=== PATIENT | male | born 1935 | race Two or more races ===

== ENCOUNTER → 2019-01-10 19:02 | Outpatient (CLI) | payer MEDICARE | END | disposition home or self-care (01) | LOC: D.LABREF 19:02 | PROVIDERS: ATTEND Orthopaedic Surgery | DX: M17.12 Unilateral primary osteoarthritis, left knee (principal); Z11.8 Encounter for screening for other infectious and parasitic diseases ==

== ENCOUNTER 2019-01-11 13:45 | Inpatient (IN) | payer MEDICARE, OTHER ==
[~2019-01-11] VITALS: Ht 185.4 cm; Wt 120.5 kg
[2019-01-24] MEDS ORDERED: TENORMIN25 MG PO (13:38)
[2019-01-24] MEDS ORDERED: HCTZ25 MG PO (13:39)
[2019-01-24] MEDS ORDERED: VASOTEC20 MG PO (13:39)
[2019-01-24] MEDS ORDERED: FLOMAX0.4 MG PO (13:40)
[2019-01-24] MEDS ORDERED: ZOCOR20 MG PO (13:40)
[2019-01-25 09:58] LABS: BASOPHILS 0.2 % (0-2); EOSINOPHILS 1.8 % (0-7); HEMATOCRIT 44.4 % (42.0-54.0); HEMOGLOBIN 14.9 g/dL (13.5-17.5); IMMATURE GRANULOCYTES 0.6 % (0-5); LYMPHOCYTES 18.7 % (15-50); MCH 32.1 pg (26.0-34.0); MCHC 33.6 g/dL (31.0-37.0); MCV 95.7 fL (80.0-100.0); MEAN PLATELET VOLUME 10.5 fL (7.4-10.4); MONOCYTES 10.4 % (2-11); NEUTROPHILS 68.3 % (40-80); PLATELET COUNT 212 10x3/uL (130-400); RBC 4.64 10x6/uL (4.20-6.10); RDW 13.3 % (11.5-14.5)
[2019-01-25 10:02] LABS: APTT 28.1 SECONDS (22.8-39.4); INR 1.02 (0.85-1.17); PROTIME 12.9 SECONDS (11.6-15.0)
[2019-01-25 10:10] LABS: ANION GAP 8.8 mmol/L (8-16); CALCIUM 9.4 mg/dL (8.5-10.1); CARBON DIOXIDE 31.6 mmol/L (21.0-32.0); CREATININE - SERUM 1.5 mg/dL (0.6-1.3); POTASSIUM - SERUM 3.4 mmol/L (3.5-5.1)
[2019-01-25 10:27] LABS: APPEARANCE CLEAR (CLEAR); BILIRUBIN NEGATIVE (NEGATIVE); CALCIUM OXALATE CRYSTALS RARE /hpf (NONE SEEN); COLOR DK YELLOW (YELLOW); EPITHELIAL CELLS 0-5 /hpf (0-5); GLUCOSE NEGATIVE (NEGATIVE); KETONE NEGATIVE (NEGATIVE); MUCUS >1+ /lpf (NONE SEEN); NITRITE NEGATIVE (NEGATIVE); PROTEIN NEGATIVE (NEGATIVE); RED CELLS - URINE RARE /hpf (0-5); SPECIFIC GRAVITY 1.015 (1.005-1.020); WHITE CELLS - URINE 0-5 /hpf (0-5)
[2019-01-25 10:35] LABS: BACTERIA FEW /hpf (NONE SEEN); HYALINE CAST 0-5 /lpf (NONE SEEN)
[2019-01-30] VITALS (10 sets, daily range): BP systolic 112–132; BP diastolic 60–76; Ht 185.4 cm; Wt 120.5 kg
--- NOTE | 2019-01-30 16:37 | NUR ---
PATIENT RECIEVED POST-OP LEFT TOTAL KNEE REPLACEMENT. DRESSING C/D/I. PATIENT REPORTS NO PAIN FOLLOWING BLOCK WITH SURGERY. ORIENTED TO ROOM. CL IN EASY REACH
[2019-01-31 04:00] VITALS: BP 104/58
--- NOTE | 2019-01-31 04:46 | NUR ---
PT RESTING IN BED. EYES CLOSED. NO SIGNS OF DISTRESS. BREATHING EVEN AND UNLABORED. IV SITE RT HAND DRESSING CLEAN DRY AND INTACT. NO SIGNS OF INFECTION. BOWEL SOUNDS ACTIVE. 2LO2 NASAL CANNULA. LT KNEE DRESSING CLEAN DRY AND INTACT. WILL CONTINUE PLAN OF CARE. CALL LIGHT IN REACH. BED LOWERED AND LOCKED. SON AT BEDSIDE.
[2019-01-31 05:59] LABS: HEMATOCRIT 37.4 % (42.0-54.0); HEMOGLOBIN 12.3 g/dL (13.5-17.5); MCH 31.5 pg (26.0-34.0); MCHC 32.9 g/dL (31.0-37.0); MCV 95.9 fL (80.0-100.0); RBC 3.9 10x6/uL (4.20-6.10); RDW 13.3 % (11.5-14.5); WBC 17.4 10x3/uL (4.8-10.8)
--- NOTE | 2019-01-31 07:55 | NUR ---
PT RESTING IN BED WITH EYES CLOSED. AWAKENS STAFF ENTERS ROOM. CPM IN PLACE AND OPERATING TO LEFT LOWER EXTREMITY. PT DENIES PAIN AT THIS TIME. IV TO RIGHT HAND WITH 1/2 NS @ 100ML/HR INFUSING VIA PUMP. SITE WITHOUT REDNESS OR EDEMA. DENIES FURTHER NEEDS AT THIS TIME. CL WITHIN REACH. ENCOURAGED TO CALL WITH NEEDS. CONTINUE POC
[2019-01-31 08:36] VITALS: BP 112/55
--- NOTE | 2019-01-31 09:10 | NUR ---
PT IN AT PATIENT BEDSIDE TO EVAL AND ASSIST TO BS CHAIR. PT INDIGO WELL. CONTINUES TO DENY PAIN AT THIS TIME. CL WITHIN REACH. ENCOURAGED TO CALL WITH NEEDS. SON AT BEDSIDE.
--- NOTE | 2019-01-31 11:15 | OP ---
PATIENT NAME: TICO MCLAUGHLIN MEDICAL RECORD: [id number] :39 LOCATION:D.MS [id number] ADMISSION DATE:01/30/19 SURGEON: TICO GAMA MD DATE OF OPERATION: 01/30/2019 PREOPERATIVE DIAGNOSIS: Degenerative arthritis, left knee. POSTOPERATIVE DIAGNOSIS: Degenerative arthritis, left knee. PROCEDURE: Left total knee arthroplasty. SURGEON: Tico Gama MD ANESTHESIA: General. CREOSOTING ENGINEER: César West APN ANESTHESIA: General. INTRAOPERATIVE COMPLICATIONS: None. SUMMARY OF PATHOLOGIC FINDINGS: The patient has severe degenerative arthritis of the left knee consistent with preoperative radiographs. IMPLANTS USED: [place] total knee arthroplasty size 8 distal femur, size 8 tibial baseplate and a size 11 polyethylene insert, size 11 x 39 patella. INTRAOPERATIVE COMPLICATIONS: None. SUMMARY OF PATHOLOGIC FINDINGS: Severe degenerative arthritis, tricompartmental mostly on the medial aspect consistent with preoperative radiographs and the patient's symptoms. OPERATIVE SUMMARY IN DETAIL: After obtaining the appropriate preoperative orthopedic surgery consents as well as anesthetic consultation, evaluation and clearance, the patient was brought to the operating room and placed on the operating table in supine position. After general laryngeal mask airway was administered, tourniquet was placed about the proximal aspect of the left lower extremity. Left lower extremity was then prepped and draped in routine sterile fashion. At this point, the appropriate timeout was taken with the appropriate patient identifiers and agreed upon by all in the operative suite. The leg was elevated and exsanguinated, tourniquet inflated to 350 mmHg. Routine midline incision was taken down for paramedian arthrotomy. Patella was everted. Distal femoral was exposed. Soft tissue excision was done in the usual fashion. Distal intramedullary guide hole was created for intramedullary guided cuts. Distal femur was cut followed by complete exposure of the proximal tibia. Soft tissue excision was again done for complete exposure of the proximal tibia. Intramedullary guide hole was created for intramedullary guided cuts. Appropriate measurements were taken. Chamfer cuts were made. Final components were put in corresponding to the above-mentioned components. Arthritic aspect of the patella was then removed in preparation for the patellar component. Patella was prepared for final implantation. The knee was lavaged to remove all debris. At this point, final components were cemented into place. All excess cement was removed. After the cement was allowed to harden, the knee was taken through range of motion and found to be stable in all planes. The knee was OPERATIVE REPORT [id number] TICO MCLAUGHLIN instilled with a gram of vancomycin and gram of tobramycin and was closed by Hugh West with #2 Ethibond followed by #1 Vicryl, 2-0 Vicryl, and skin carmelo. Sterile dressings were applied. The patient was awakened and taken to recovery in stable condition. All final needle and sponge counts were correct. TRANSINT:[id number] Voice Confirmation ID: [id number] DOCUMENT ID: [id number] NATAN MEJIA, TICO MUELLER at 1115 CC: [id number] DICTATION DATE: 01/31/19620 FACING SLITTER: 01/31/19 07 ADM IN [facility] [id number] [place] [address]
--- NOTE | 2019-01-31 12:00 | NUR ---
PT REMAINS UP IN CHAIR AT BEDSIDE. NO ACUTE DISTRESS NOTED. REPORTS PAIN 8/10 TO LEFT KNEE. PAIN MEDICATION ADMINISTERED PER MD ORDERS.
[2019-01-31 12:56] VITALS: BP 95/51
--- NOTE | 2019-01-31 13:58 | NUR ---
PT RESTING IN BED WITH EYES CLOSED. NO ACUTE DISTRESS NOTED AT THIS TIME. CL WITHIN REACH. WILL CONTINUE TO MONITOR.
[2019-01-31 17:36] VITALS: BP 135/60
--- NOTE | 2019-01-31 18:15 | NUR ---
CPM PLACED TO PT LEFT LOWER EXTREMITY. PT VOICES COMFORT TO PLACEMENT OF CPM. INSTRUCTED PT OF TIME CPM WILL BE REMOVED. PT DENIES ANY QUESTIONS OR CONCERNS. CL WITHIN REACH. ENCOURAGED TO CALL WITH NEEDS.
[2019-01-31 20:00] VITALS: BP 142/71
--- NOTE | 2019-01-31 20:00 | NUR ---
ASSESSMENT PER FLOWSHEET. LEFT LEG IN CPM MACHINE. EDWIN WRAP C/D/I. IV PATENT RT. HAND SALINE LOCKED. SITE CLEAR. SCD'S ON. WICHO MAT TO BED SR UP X2 CALL LIGHT WITHIN REACH SON AT BEDSIDE. DENIES NEEDS.
--- NOTE | 2019-01-31 21:15 | NUR ---
CPM REMOVED. MEDS GIVEN PER SEP.
--- NOTE | 2019-02-01 00:03 | NUR ---
EYES CLOSED RESPIRATIONS WITH EASE AND UNLABORED.
[2019-02-01 05:16] LABS: HEMATOCRIT 33.2 % (42.0-54.0); MCH 31.6 pg (26.0-34.0); MCHC 33.1 g/dL (31.0-37.0); MCV 95.4 fL (80.0-100.0); MEAN PLATELET VOLUME 10.5 fL (7.4-10.4); RBC 3.48 10x6/uL (4.20-6.10); RDW 13.5 % (11.5-14.5); WBC 15.1 10x3/uL (4.8-10.8)
--- NOTE | 2019-02-01 05:18 | NUR ---
C/O PAIN INCISIONAL AREA RATES PAIN LEVEL#5. NORCO 10/325MG TAB ONE GIVEN FOR PAIN CONTROL.
[2019-02-01 05:26] LABS: ANION GAP 10.4 mmol/L (8-16); CALCIUM 8.4 mg/dL (8.5-10.1); CARBON DIOXIDE 29.7 mmol/L (21.0-32.0); CREATININE - SERUM 1.8 mg/dL (0.6-1.3); POTASSIUM - SERUM 4.1 mmol/L (3.5-5.1)
--- NOTE | 2019-02-01 07:33 | NUR ---
PT RESTING IN BED. ON CPM. FAMILY AT BEDSIDE. NO S/S OF ACUTE DISTRESS. CL IN PLACE.
[2019-02-01 08:55] VITALS: BP 117/62
[2019-02-01 13:57] VITALS: BP 112/62
--- NOTE | 2019-02-01 15:01 | MORECARE ---
CASE MANAGEMENT DISCHARGE SUMMARY PATIENT: TICO MCLAUGHLIN UNIT: [id number] ADM DATE: 01/30/19 AGE: 83 : 37 SEX: M ROOM/BED: D.2213 AUTHOR: KEVAN VILLAVICENCIO PHYSICIAN: REFERRING PHYSICIAN: TICO GAMA MD DATE OF SERVICE: 02/01/19 Discharge Plan Patient Name: TICO MCLAUGHLIN [place] [facility] : 1935 Planned Disposition: Home with Home Health Anticipated Discharge Date: Discharge Date: Expected LOS: Initial Reviewer: [email or web address] Initial Review Date: 01/30/2019 Generated: 02/01/19 4:00 pm DCPIA - Discharge Planning Initial Assessment Updated by [email or web address]: Unique Oconnell on 02/01/19 2:58 pm * Is the patient Alert and Oriented? Yes * How many steps to enter\exit or inside your home? * [facility] * Pharmacy [facility] [place] * Preadmission Environment Home Alone * ADLs Independent * Equipment Bedside Commode Rolling Walker * List name and contact numbers for known caregivers / representatives who currently or will assist patient after discharge: RONI (SON) [phone] * Verbal permission to speak to the caregivers and representatives has been obtained from the patient. Yes * Community resources currently utilized None * Additional services required to return to the preadmission environment? Yes * Can the patient safely return to the preadmission environment? Yes * Has this patient been hospitalized within the prior 30 days at any hospital? No Patient Name: TICO MCLAUGHLIN Page [id number] at 1501 All edits/amendments must be made on the electronic document DICTATION DATE: 02/01/19 1500 DIGITAL ASSOCIATE: CORINE 02/01/19 1500 RPT#: [id number] DC DATE: STATUS: ADM IN [facility] [address] [place] [address] END OF REPORT
--- NOTE | 2019-02-01 15:09 | MORECARE ---
CASE MANAGEMENT DISCHARGE SUMMARY PATIENT: TICO MCLAUGHLIN UNIT: [id number] ADM DATE: 01/30/19 AGE: 83 : 37 SEX: M ROOM/BED: D.2213 AUTHOR: MAYE,DOC PHYSICIAN: REFERRING PHYSICIAN: TICO GAMA MD DATE OF SERVICE: 02/01/19 Discharge Plan Patient Name: TICO MCLAUGHLIN Facility: [facility]:[place] : 1935 Planned Disposition: Home with Home Health Anticipated Discharge Date: Discharge Date: Expected LOS: Initial Reviewer: [email or web address] Initial Review Date: 01/30/2019 Generated: 02/01/19 4:08 pm Comments DCP- Discharge Planning Updated by [email or web address]: Unique Oconnell on 02/01/19 2:[address] Patient Name: TICO MCLAUGHLIN Admission Status: Urgent Accout number: [id number] Admission Date: 01-30-2019 : 1935 Admission Diagnosis: Attending: TICO GAMA Current LOS: 2 Anticipated DC Date: Planned Disposition: Home with Home Health Primary Insurance: MEDICARE A & B Discharge Planning Comments: CM met with patient & son to complete initial dc planning assessment. CM educated patient on the CM role and verbal consent given by patient to complete assessment. Patient lives at home where he is independent with his care. His son lives next door & his daughter will be staying with him for a little while. At discharge patient plans to return home and feels this is a safe discharge. CM discussed availability of home health, rehab services, and medical equipment. He would like home health [facility]AR[facility]AD with [facility] and will need a CPM. He has a BSC and a walker at home. CM will call Ortho office and see where he ordered the CPM. [facility] served and explained. Patient denied known discharge needs at this time. CM will continue to follow and will assist as needed with dc plans/needs. Acetylene Operator: Unique Oconnell DCPIA - Discharge Planning Initial Assessment Updated by [email or web address]: Unique Oconnell on 02/01/19 2:58 pm * Is the patient Alert and Oriented? Yes * How many steps to enter\exit or inside your home? * PCP [facility] * Pharmacy [facility] IN [place] * Preadmission Environment Home Alone * ADLs Independent * Equipment Bedside Commode Rolling Walker * List name and contact numbers for known caregivers / representatives who currently or will assist patient after discharge: RONI (SON) [phone] * Verbal permission to speak to the caregivers and representatives has been obtained from the patient. Yes * Community resources currently utilized None * Additional services required to return to the preadmission environment? Yes * Can the patient safely return to the preadmission environment? Yes * Has this patient been hospitalized within the prior 30 days at any hospital? No Coverage Notice Reviewer: [id number] Stanislaw Oconnell Notice Issued Date-Time: 02/01/2019 15:00 Notice Type: IM Discharge Notice Notice Delivered To: Patient Relationship to Patient: Tobacco Stripper Name: Delivery Method: HAND - Hand Delivered Yarelis Days: Prior Verbal Notification: Recipient Understood Notice: Yes Recipient Signature: Yes Med Rec Note Co-signed by Attending: Coverage Notice Comment: Reviewer: [id number] Stanislaw Oconnell Notice Issued Date-Time: 02/01/2019 15:00 Notice Type: Patient Choice Letter Notice Delivered To: Patient Relationship to Patient: Tobacco Stripper Name: Delivery Method: HAND - Hand Delivered Yarelis Days: Prior Verbal Notification: Recipient Understood Notice: Yes Recipient Signature: Yes Med Rec Note Co-signed by Attending: Coverage Notice Comment: [facility] with [facility] ? richard Camacho DP export: 02/01/19 2:01 p Patient Name: TICO MCLAUGHLIN Page [id number] at 1509 All edits/amendments must be made on the electronic document DICTATION DATE: 02/01/19 1508 PRINCIPAL DEVELOPER: CORINE 02/01/19 1508 RPT#: [id number] DC DATE: STATUS: ADM IN [facility] [address] [place] [address] END OF REPORT
--- NOTE | 2019-02-01 15:44 | MORECARE ---
CASE MANAGEMENT DISCHARGE SUMMARY PATIENT: TICO MCLAUGHLIN UNIT: [id number] ADM DATE: 01/30/19 AGE: 83 : 37 SEX: M ROOM/BED: D.2213 AUTHOR: MAYE,DOC PHYSICIAN: REFERRING PHYSICIAN: TICO GAMA MD DATE OF SERVICE: 02/01/19 Discharge Plan Patient Name: TICO MCLAUGHLIN Facility: [facility]:[place] : 1935 Planned Disposition: Home with Home Health Anticipated Discharge Date: Discharge Date: Expected LOS: Initial Reviewer: [email or web address] Initial Review Date: 01/30/2019 Generated: 02/01/19 4:44 pm Comments DCP- Discharge Planning Updated by [email or web address]: Unique Oconnell on 02/01/19 2:[address] REFERRAL SENT TO [facility] [place], FAXED TO [phone] THEIR NUMBER IS [phone] GUILLERMO IS THE DIRECTOR DCP- Discharge Planning Updated by [email or web address]: Unique Oconnell on 02/01/19 2:[address] Patient Name: TICO MCLAUGHLIN Admission Status: Urgent Accout number: [id number] Admission Date: 01-30-2019 : 1935 Admission Diagnosis: Attending: TICO GAMA Current LOS: 2 Anticipated DC Date: Planned Disposition: Home with Home Health Primary Insurance: MEDICARE A & B Discharge Planning Comments: CM met with patient & son to complete initial dc planning assessment. CM educated patient on the CM role and verbal consent given by patient to complete assessment. Patient lives at home where he is independent with his care. His son lives next door & his daughter will be staying with him for a little while. At discharge patient plans to return home and feels this is a safe discharge. CM discussed availability of home health, rehab services, and medical equipment. He would like home health [facility] with [facility] and will need a CPM. He has a BSC and a walker at home. CM will call Ortho office and see where he ordered the CPM. IMM served and explained. Patient denied known discharge needs at this time. CM will continue to follow and will assist as needed with dc plans/needs. Appraiser Land: Unique Oconnell DCPIA - Discharge Planning Initial Assessment Updated by [email or web address]: Unique Oconnell on 02/01/19 2:58 pm * Is the patient Alert and Oriented? Yes * How many steps to enter\exit or inside your home? * [facility] * Pharmacy [facility] IN [place] * Preadmission Environment Home Alone * ADLs Independent * Equipment Bedside Commode Rolling Walker * List name and contact numbers for known caregivers / representatives who currently or will assist patient after discharge: RONI (SON) [phone] * Verbal permission to speak to the caregivers and representatives has been obtained from the patient. Yes * Community resources currently utilized None * Additional services required to return to the preadmission environment? Yes * Can the patient safely return to the preadmission environment? Yes * Has this patient been hospitalized within the prior 30 days at any hospital? No Coverage Notice Reviewer: [email or web address] Stanislaw Oconnell Notice Issued Date-Time: 02/01/2019 15:00 Notice Type: IM Discharge Notice Notice Delivered To: Patient Relationship to Patient: Director Of Analytics Name: Delivery Method: HAND - Hand Delivered Yarelis Days: Prior Verbal Notification: Recipient Understood Notice: Yes Recipient Signature: Yes Med Rec Note Co-signed by Attending: Coverage Notice Comment: Reviewer: [id number] Stanislaw Oconnell Notice Issued Date-Time: 02/01/2019 15:00 Notice Type: Patient Choice Letter Notice Delivered To: Patient Relationship to Patient: Director Of Analytics Name: Delivery Method: HAND - Hand Delivered Yarelis Days: Prior Verbal Notification: Recipient Understood Notice: Yes Recipient Signature: Yes Med Rec Note Co-signed by Attending: Coverage Notice Comment: [facility] with [facility] ? richard Last DP export: 02/01/19 2:09 p Patient Name: TICO MCLAUGHLIN Page [phone] at 1544 All edits/amendments must be made on the electronic document DICTATION DATE: 02/01/191543 BOARD LAYER: CORINE 02/01/191543 RPT#: [id number] DC DATE: STATUS: ADM IN [facility] [address] [place] [address] END OF REPORT
[2019-02-01 15:56] LABS: APPEARANCE CLEAR (CLEAR); BILIRUBIN NEGATIVE (NEGATIVE); COLOR YELLOW (YELLOW); GLUCOSE NEGATIVE (NEGATIVE); KETONE NEGATIVE (NEGATIVE); NITRITE NEGATIVE (NEGATIVE); PROTEIN TRACE mg/dL (NEGATIVE); SPECIFIC GRAVITY 1.015 (1.005-1.020); UROBILINOGEN NORMAL (NORMAL)
[2019-02-01 15:57] LABS: BACTERIA FEW /hpf (NONE SEEN); RED CELLS - URINE OCC /hpf (0-5); WHITE CELLS - URINE OCC /hpf (0-5)
--- NOTE | 2019-02-01 19:33 | NUR ---
IN BED WITH EYES CLOSED, ON CPM. FAMILY MEMBER AT BEDSIDE. ABLE TO VOICE NEEDS, DENIES PAIN AT THIS TIME. WILL NOTE ANY CHANGE.
[2019-02-01 21:15] VITALS: BP 127/59
[2019-02-02 01:38] VITALS: BP 154/60
--- NOTE | 2019-02-02 05:03 | NUR ---
REQUESTED PAIN MEDICINE BEFORE CPM MACHINE, GIVEN PER ORDERS. WILL NOTE ANY CHANGE.
[2019-02-02 05:11] VITALS: BP 129/65
[2019-02-02 05:20] LABS: BASOPHILS 0.2 % (0-2); EOSINOPHILS 0.3 % (0-7); HEMATOCRIT 31.1 % (42.0-54.0); HEMOGLOBIN 10.3 g/dL (13.5-17.5); IMMATURE GRANULOCYTES 0.6 % (0-5); LYMPHOCYTES 10.8 % (15-50); MCH 31.8 pg (26.0-34.0); MCHC 33.1 g/dL (31.0-37.0); MEAN PLATELET VOLUME 10.8 fL (7.4-10.4); NEUTROPHILS 77.1 % (40-80); PLATELET COUNT 160 10x3/uL (130-400); RBC 3.24 10x6/uL (4.20-6.10); RDW 13.5 % (11.5-14.5); WBC 12.5 10x3/uL (4.8-10.8)
[2019-02-02 05:27] LABS: ANION GAP 12.5 mmol/L (8-16); CALCIUM 8.6 mg/dL (8.5-10.1); CARBON DIOXIDE 27.7 mmol/L (21.0-32.0); CREATININE - SERUM 1.7 mg/dL (0.6-1.3); POTASSIUM - SERUM 4.2 mmol/L (3.5-5.1)
--- NOTE | 2019-02-02 07:43 | NUR ---
PT RESTING IN BED. ON CPM. CHEST RISING AND FALLING. NO S/S OF ACUTE DISTRESS. CL IN PLACE.
[2019-02-02] MEDS ORDERED: ELIQUIS2.5 MG PO (08:23)
[2019-02-02] MEDS ORDERED: HYDROCODON-ACE1 EA10 PO (08:23)
[2019-02-02 08:30] VITALS: BP 126/58
--- NOTE | 2019-02-02 10:56 | MORECARE ---
CASE MANAGEMENT DISCHARGE SUMMARY PATIENT: TICO MCLAUGHLIN UNIT: [id number] ADM DATE: 01/30/19 AGE: 83 : 37 SEX: M ROOM/BED: D.2213 AUTHOR: MAYE,DOC PHYSICIAN: REFERRING PHYSICIAN: TICO GAMA MD DATE OF SERVICE: 02/02/19 Discharge Plan Patient Name: TICO MCLAUGHLIN Facility: [facility]:[place] : 1935 Planned Disposition: Home with Home Health Anticipated Discharge Date: Discharge Date: Expected LOS: Initial Reviewer: [email or web address] Initial Review Date: 01/30/2019 Generated: 02/02/19 11:55 am Comments DCP- Discharge Planning Updated by [email or web address]: Unique Oconnell on 02/02/19 9:[address] Patient is discharging home today with [facility] with the [place] office. Dr Gama's office has set up the patient to have a CPM from [facility]. I called and spoke with Luigi and he confirmed he has an order and said he will get it delivered today. Will fax clinical's to [facility] to follow as needed DCP- Discharge Planning Updated by [email or web address]: Unique Oconnell on 02/01/19 2:[address] REFERRAL SENT TO [facility] IN [place], FAXED TO [phone] THEIR NUMBER IS [phone] GUILLERMO IS THE DIRECTOR DCP- Discharge Planning Updated by [email or web address]: Unique Oconnell on 02/01/19 2:[address] Patient Name: TICO MCLAUGHLIN Admission Status: Urgent Accout number: [id number] Admission Date: 01-30-2019 : 1935 Admission Diagnosis: Attending: TICO GAMA Current LOS: 2 Anticipated DC Date: Planned Disposition: Home with Home Health Primary Insurance: MEDICARE A & B Discharge Planning Comments: CM met with patient & son to complete initial dc planning assessment. CM educated patient on the CM role and verbal consent given by patient to complete assessment. Patient lives at home where he is independent with his care. His son lives next door & his daughter will be staying with him for a little while. At discharge patient plans to return home and feels this is a safe discharge. CM discussed availability of home health, rehab services, and medical equipment. He would like home health [facility] with [facility] and will need a CPM. He has a BSC and a walker at home. CM will call Ortho office and see where he ordered the CPM. IMM served and explained. Patient denied known discharge needs at this time. CM will continue to follow and will assist as needed with dc plans/needs. Stone Cleaner: Unique Oconnell DCPIA - Discharge Planning Initial Assessment Updated by [email or web address]: Unique Oconnell on 02/01/19 2:58 pm * Is the patient Alert and Oriented? Yes * How many steps to enter\exit or inside your home? * [facility] * Pharmacy [facility] [place] * Preadmission Environment Home Alone * ADLs Independent * Equipment Bedside Commode Rolling Walker * List name and contact numbers for known caregivers / representatives who currently or will assist patient after discharge: RONI (SON) [phone] * Verbal permission to speak to the caregivers and representatives has been obtained from the patient. Yes * Community resources currently utilized None * Additional services required to return to the preadmission environment? Yes * Can the patient safely return to the preadmission environment? Yes * Has this patient been hospitalized within the prior 30 days at any hospital? No Coverage Notice Reviewer: [id number] Stanislaw Oconnell Notice Issued Date-Time: 02/01/2019 15:00 Notice Type: IM Discharge Notice Notice Delivered To: Patient Relationship to Patient: Assembler Bonding Name: Delivery Method: HAND - Hand Delivered Yarelis Days: Prior Verbal Notification: Recipient Understood Notice: Yes Recipient Signature: Yes Med Rec Note Co-signed by Attending: Coverage Notice Comment: Reviewer: [id number] Stanislaw Oconnell Notice Issued Date-Time: 02/01/2019 15:00 Notice Type: Patient Choice Letter Notice Delivered To: Patient Relationship to Patient: Assembler Bonding Name: Delivery Method: HAND - Hand Delivered Yarelis Days: Prior Verbal Notification: Recipient Understood Notice: Yes Recipient Signature: Yes Med Rec Note Co-signed by Attending: Coverage Notice Comment: farzad with [facility] ? richard Last DP export: 02/01/19 2:44 p Patient Name: TICO MCLAUGHLIN Page [phone] at 1056 All edits/amendments must be made on the electronic document DICTATION DATE: 02/02/19 105 WARRANTY COORDINATOR: CORINE 02/02/19 1055 RPT#: [id number] DC DATE: STATUS: ADM IN [facility] [address] [place] [address] END OF REPORT
--- NOTE | 2019-02-02 14:24 | NUR ---
DC INSTRUCTIONS AND EDUCATION DONE WITH FAMILY. NO IV NOTED. PT TAKEN DOWN TO LOBBY BY VOLUNTEER. DAUGHTER CARRIED ALL BELONGINGS. NO S/S OF ACUTE DISTRESS. NOTED.
--- NOTE | 2019-02-06 11:38 | MORECARE ---
CASE MANAGEMENT DISCHARGE SUMMARY PATIENT: TICO MCLAUGHLIN UNIT: [id number] ADM DATE: 01/30/19 AGE: 83 : 37 SEX: M ROOM/BED: D.2213 AUTHOR: MAYE,DOC PHYSICIAN: REFERRING PHYSICIAN: TICO GAMA MD DATE OF SERVICE: 02/06/19 Discharge Plan Patient Name: TICO MCLAUGHLIN Facility: [facility]:[place] : 1935 Planned Disposition: Home with Home Health Anticipated Discharge Date: Discharge Date: 02/02/2019 Expected LOS: Initial Reviewer: [email or web address] Initial Review Date: 01/30/2019 Generated: 02/06/19 12:37 pm Comments DCP- Discharge Planning Updated by [email or web address]: Unique Oconnell on 02/02/19 9:[address] Patient is discharging home today with [facility] with the [place] office. Dr Gama's office has set up the patient to have a CPM from [employer]. I called and spoke with Luigi and he confirmed he has an order and said he will get it delivered today. Will fax clinical's to [facility] to follow as needed DCP- Discharge Planning Updated by [email or web address]: Unique Oconnell on 02/01/19 2:[address] REFERRAL SENT TO [facility] IN [place], FAXED TO [phone] THEIR NUMBER IS [phone] GUILLERMO IS THE DIRECTOR DCP- Discharge Planning Updated by [email or web address]: Unique Oconnell on 02/01/19 2:[address] Patient Name: TICO MCLAUGHLIN Admission Status: Urgent Accout number: [id number] Admission Date: 01-30-2019 : 1935 Admission Diagnosis: Attending: TICO GAMA Current LOS: 2 Anticipated DC Date: Planned Disposition: Home with Home Health Primary Insurance: MEDICARE A & B Discharge Planning Comments: CM met with patient & son to complete initial dc planning assessment. CM educated patient on the CM role and verbal consent given by patient to complete assessment. Patient lives at home where he is independent with his care. His son lives next door & his daughter will be staying with him for a little while. At discharge patient plans to return home and feels this is a safe discharge. CM discussed availability of home health, rehab services, and medical equipment. He would like home health [facility]AR[facility] with [facility] and will need a CPM. He has a BSC and a walker at home. CM will call Ortho office and see where he ordered the CPM. IMM served and explained. Patient denied known discharge needs at this time. CM will continue to follow and will assist as needed with dc plans/needs. Sorting Supervisor: Unique Oconnell DCPIA - Discharge Planning Initial Assessment Updated by [email or web address]: Unique Oconnell on 02/01/19 2:58 pm * Is the patient Alert and Oriented? Yes * How many steps to enter\exit or inside your home? * [facility] * Pharmacy [facility] IN [place] * Preadmission Environment Home Alone * ADLs Independent * Equipment Bedside Commode Rolling Walker * List name and contact numbers for known caregivers / representatives who currently or will assist patient after discharge: RONI (SON) [phone] * Verbal permission to speak to the caregivers and representatives has been obtained from the patient. Yes * Community resources currently utilized None * Additional services required to return to the preadmission environment? Yes * Can the patient safely return to the preadmission environment? Yes * Has this patient been hospitalized within the prior 30 days at any hospital? No Coverage Notice Reviewer: [email or web address] Stanislaw Oconnell Notice Issued Date-Time: 02/01/2019 15:00 Notice Type: IM Discharge Notice Notice Delivered To: Patient Relationship to Patient: Solderer Electronic Name: Delivery Method: HAND - Hand Delivered Yarelis Days: Prior Verbal Notification: Recipient Understood Notice: Yes Recipient Signature: Yes Med Rec Note Co-signed by Attending: Coverage Notice Comment: Reviewer: [email or web address] Stanislaw Oconnell Notice Issued Date-Time: 02/01/2019 15:00 Notice Type: Patient Choice Letter Notice Delivered To: Patient Relationship to Patient: Solderer Electronic Name: Delivery Method: HAND - Hand Delivered Yarelis Days: Prior Verbal Notification: Recipient Understood Notice: Yes Recipient Signature: Yes Med Rec Note Co-signed by Attending: Coverage Notice Comment: [facility]ad with [facility] ? [place] Last DP export: 02/02/19 9:55 am Patient Name: TICO MCLAUGHLIN Page 29162 at 1138 All edits/amendments must be made on the electronic document DICTATION DATE: 02/06/191136 JACK SPOOLER TENDER: CORINE 02/06/197 RPT#: [id number] [place] DATE:02/02/19 STATUS: DIS IN [facility] [address] [place] [address] END OF REPORT
== END 2019-02-02 14:26 | disposition home health service (06) | DRG 470 ==
LOC: D.SDCHOLD 01-25 10:00 → D.MS 01-30 09:35 → D.SDCHOLD 01-30 10:00 → D.MS 01-30 15:36
PROVIDERS: Internal Medicine Nephrology; ADMIT Orthopaedic Surgery; ATTEND Orthopaedic Surgery
PROC: 0SRD069 Replacement of Left Knee Joint with Oxidized Zirconium on Polyethylene Synthetic Substitute, Cemented, Open Approach (ICD-10-PCS; principal; 2019-01-30 12:00)
DX: M17.12 Unilateral primary osteoarthritis, left knee (principal); N17.9 Acute kidney failure, unspecified; D62 Acute posthemorrhagic anemia; Z86.73 Personal history of transient ischemic attack (TIA), and cerebral infarction without residual deficits; I10 Essential (primary) hypertension; Z72.0 Tobacco use

== ENCOUNTER 2019-06-29 14:00 | Inpatient (IN) | payer MEDICARE, OTHER ==
[~2019-06-29] VITALS: Ht 185.4 cm; Wt 120.2 kg
[~2019-06-29 14:00] MED LIST: ELIQUIS2.5 MG PO; FLOMAX0.4 MG PO; HCTZ25 MG PO; HYDROCODON-ACE1 EA10 PO; TENORMIN25 MG PO; VASOTEC20 MG PO; ZOCOR20 MG PO
[2019-06-29] MEDS ORDERED: BUMEX2 MG PO (14:10)
[2019-06-29] MEDS ORDERED: GABAPENTIN300 MG PO (14:10)
[2019-06-29] MEDS ORDERED: ALDACTONE25 MG PO (14:11)
[2019-06-29] MEDS ORDERED: K-DUR20 MEQ PO (14:11)
[2019-06-29 15:19] LABS: BASOPHILS 0.1 % (0-2); EOSINOPHILS 0.1 % (0-7); HEMATOCRIT 37.5 % (42.0-54.0); HEMOGLOBIN 11.6 g/dL (13.5-17.5); IMMATURE GRANULOCYTES 0.8 % (0-5); LYMPHOCYTES 12.7 % (15-50); MCH 29.7 pg (26.0-34.0); MCHC 30.9 g/dL (31.0-37.0); MCV 95.9 fL (80.0-100.0); MEAN PLATELET VOLUME 10.8 fL (7.4-10.4); MONOCYTES 9.7 % (2-11); NEUTROPHILS 76.6 % (40-80); PLATELET COUNT 198 10x3/uL (130-400); RBC 3.91 10x6/uL (4.20-6.10); RDW 14.7 % (11.5-14.5); WBC 15.6 10x3/uL (4.8-10.8)
[2019-06-29 15:39] LABS: INR 1.19 (0.85-1.17); PROTIME 14.6 SECONDS (11.6-15.0)
[2019-06-29 15:42] LABS: ANION GAP 13.7 mmol/L (8-16); CALCIUM 8.8 mg/dL (8.5-10.1); CARBON DIOXIDE 25.4 mmol/L (21.0-32.0); CREATININE - SERUM 1.2 mg/dL (0.6-1.3); POTASSIUM - SERUM 4.1 mmol/L (3.5-5.1)
[2019-06-29 15:48] LABS: ALBUMIN 2.8 g/dL (3.4-5.0); BILIRUBIN - TOTAL 0.66 mg/dL (0.2-1.3); PROTEIN - SERUM 6.9 g/dL (6.4-8.2)
[2019-06-29 16:23] VITALS: BP 137/87
[2019-06-29 16:37] VITALS: BP 146/83
--- NOTE | 2019-06-29 17:23 | MORECARE ---
CASE MANAGEMENT DISCHARGE SUMMARY PATIENT: TICO AGGARWAL UNIT: [id number] ADM DATE: 06/29/19 AGE: 84 : 37 SEX: M ROOM/BED: D.2208 AUTHOR: KEVAN VILLAVICENCIO PHYSICIAN: REFERRING PHYSICIAN: STEPHANE BOOGIE MD DATE OF SERVICE: 06/29/19 Discharge Plan Patient Name: TICO AGGARWAL [facility] [facility] 1935 Planned Disposition: Home Anticipated Discharge Date: 07/03/19 Discharge Date: Expected LOS: 4 Initial Reviewer: [email or web address] Initial Review Date: 06/29/2019 Generated: 06/29/19 6:22 pm DCPIA - Discharge Planning Initial Assessment Updated by [email or web address]: Pau Kwan on 06/29/19 5:20 pm * Is the patient Alert and Oriented? Yes * How many steps to enter\exit or inside your home? * PCP Dr. [facility]e [facility] * Pharmacy [facility] * Preadmission Environment Home Alone * ADLs Independent * Equipment Bedside Commode Rolling Walker Wheelchair * List name and contact numbers for known caregivers / representatives who currently or will assist patient after discharge: Lynsey Aggarwal - dtr in law - [phone] Sheron Morales - daughter - [phone] * Verbal permission to speak to the caregivers and representatives has been obtained from the patient. Yes * Community resources currently utilized None * Additional services required to return to the preadmission environment? No * Can the patient safely return to the preadmission environment? Yes * Has this patient been hospitalized within the prior 30 days at any hospital? No Patient Name: TICO AGGARWAL Page 79558 at 1723 All edits/amendments must be made on the electronic document DICTATION DATE: 06/29/191721 ARMATURE BALANCER: CORINE 06/29/191721 RPT#: [id number] DC DATE: STATUS: ADM IN [facility] [address] [place] [address] END OF REPORT
--- NOTE | 2019-06-29 17:31 | MORECARE ---
CASE MANAGEMENT DISCHARGE SUMMARY PATIENT: TICO AGGARWAL UNIT: [id number] ADM DATE: 06/29/19 AGE: 84 : 37 SEX: M ROOM/BED: D.2208 AUTHOR: MAYE,DOC PHYSICIAN: REFERRING PHYSICIAN: STEPHANE BOOGIE MD DATE OF SERVICE: 06/29/19 Discharge Plan Patient Name: TICO AGGARWAL Facility: [facility]:[place] : 1935 Planned Disposition: Home Anticipated Discharge Date: 07/03/19 Discharge Date: Expected LOS: 4 Initial Reviewer: [email or web address] Initial Review Date: 06/29/2019 Generated: 06/29/19 6:31 pm DCP- Discharge Planning Updated by [email or web address]: Pau Kwan on 06/29/19 4:[address] DC PLAN: Home with [facility] health vs SNF @ [facility]. Both out of [place]. ANTICIPATED DC NEEDS: HH vs SNF. CM met with patient and his daughter, Sheron Morales, to complete initial dc planning assessment. CM educated patient on the CM role and verbal consent given by patient to complete assessment. CM verified patient's address, phone number, and emergency contact phone numbers. Patient lives at home alone and reports he is independent with his ADL's. At discharge patient plans to return return home if able with [facility] out of [place] and feels this is a safe discharge. If he require rehab post op he will return to [facility] in [place]. Plan will depend upon how he does. He was there several months ago and stated he would go back if he had too. SERGE form presented, explained and signed by the patient's daughter for 1.[facility] ([place]) 2.[facility] SN[facility] Signed form placed on patient's chart and a signed copy left with the patient for her records. Transportation provider at discharge will be his daughter Sheron. CM will continue to follow and will assist as needed with dc plans/needs. Pau Kwan RN, [facility] DCPIA - Discharge Planning Initial Assessment Updated by [email or web address]: Pau Kwan on 06/29/19 5:20 pm * Is the patient Alert and Oriented? Yes * How many steps to enter\exit or inside your home? * PCP Dr. [facility]e [facility] * Pharmacy [facility] * Preadmission Environment Home Alone * ADLs Independent * Equipment Bedside Commode Rolling Walker Wheelchair * List name and contact numbers for known caregivers / representatives who currently or will assist patient after discharge: Lynsey Aggarwal - dtr in law - [phone] Sheron Morales - daughter - [phone] * Verbal permission to speak to the caregivers and representatives has been obtained from the patient. Yes * Community resources currently utilized None * Additional services required to return to the preadmission environment? No * Can the patient safely return to the preadmission environment? Yes * Has this patient been hospitalized within the prior 30 days at any hospital? No Last DP export: 06/29/19 4:23 Patient Name: TICO AGGARWAL Page 43555 at 1731 All edits/amendments must be made on the electronic document DICTATION DATE: 06/29/191730 PALLIATIVE CARE NURSE PRACTITIONER: CORINE 06/29/191730 RPT#: [id number] DC DATE: STATUS: [facility] [address] [place] [address] END OF REPORT
--- NOTE | 2019-06-29 18:03 | NUR ---
REPORT CALLED TO DARUIS GALEANA
--- NOTE | 2019-06-29 18:10 | NUR ---
TRANSPORTED TO ROOM #2208, CONDITION STABLE
[2019-06-29 18:11] VITALS: BP 134/86
[2019-06-29 20:00] VITALS: BP 123/71
--- NOTE | 2019-06-29 20:20 | NUR ---
ASSESSMENT COMPLETED. PT LYING IN BED WITHOUT DISTRESS, AOX4. IV INFILTRATED, DC'D WITH CATHETER INTACT. RESITED 22G IV RIGHT HAND X4 ATTEMPTS. STARTED NS @ 75. GAVE MORPHINE ORDERED FOR PAIN. TOOK HS MEDS WITHOUT DIFFICULTY. SIGNED CONSENTS AT THIS TIME. REMINDED PT HE WILL BE NPO AFTER MN. VERBALIZED UNDERSTANDING. BED ALARM ON. CL IN REACH, WILL CTM
[2019-06-29 20:37] VITALS: BMI 35.0
[2019-06-30] VITALS: BP 127/68
[2019-06-30 04:00] VITALS: BP 152/80
[2019-06-30 06:32] LABS: BASOPHILS 0.1 % (0-2); EOSINOPHILS 0.2 % (0-7); HEMATOCRIT 32.3 % (42.0-54.0); IMMATURE GRANULOCYTES 0.4 % (0-5); LYMPHOCYTES 10.5 % (15-50); MCH 29.6 pg (26.0-34.0); MCV 95.6 fL (80.0-100.0); MEAN PLATELET VOLUME 10.5 fL (7.4-10.4); MONOCYTES 14.8 % (2-11); PLATELET COUNT 217 10x3/uL (130-400); RBC 3.38 10x6/uL (4.20-6.10); RDW 14.7 % (11.5-14.5); WBC 14.2 10x3/uL (4.8-10.8)
[2019-06-30 06:52] LABS: ALBUMIN 2.7 g/dL (3.4-5.0); ANION GAP 10.2 mmol/L (8-16); BILIRUBIN - TOTAL 0.98 mg/dL (0.2-1.3); CALCIUM 8.7 mg/dL (8.5-10.1); CARBON DIOXIDE 27.9 mmol/L (21.0-32.0); CREATININE - SERUM 1.3 mg/dL (0.6-1.3); MAGNESIUM - SERUM 1.7 mg/dL (1.8-2.4); POTASSIUM - SERUM 4.1 mmol/L (3.5-5.1); PROTEIN - SERUM 6.5 g/dL (6.4-8.2)
[2019-06-30 09:03] VITALS: BP 124/70
[2019-06-30 12:14] VITALS: BP 137/68
[2019-06-30 12:47] VITALS: Ht 185.4 cm; Wt 120.2 kg
--- NOTE | 2019-06-30 18:25 | NUR ---
IRENE PAD COVERED IN BLOOD. APPEARED TO HAVE BEEN DILUTED BY ICE PACK AGAINST HIP. PT REPORTING PAIN OF 5/10, MEDICATED PER ORDERS. DRESSING REINFORCED AND LINENS CHANGED. WILL MONITOR.
[2019-06-30 20:00] VITALS: BP 131/60
--- NOTE | 2019-06-30 22:07 | OP ---
PATIENT NAME: TICO AGGARWAL MEDICAL RECORD: [id number] :[birth year] LOCATION:D.MS [address] ADMISSION DATE:06/29/19 SURGEON: LUIGI AKERS DO DATE OF OPERATION: 06/30/2019 PROCEDURE PERFORMED: Left hip intramedullary nailing. PREOPERATIVE DIAGNOSIS: Displaced left intertrochanteric fracture, left hip. POSTOPERATIVE DIAGNOSIS: Displaced left intertrochanteric fracture, left hip. INDICATIONS: Mr. Aggarwal is an 84-year-old male that had fallen yesterday, sustained a hip fracture and was transferred here from [place] after he had a left knee replaced in January by Dr. [place]. He was transferred here. I informed him that we need to fix this hip. He will be weightbearing as tolerated and the risks of infection, bleeding, damage to nerves and vessels, need for further surgery, malunion, nonunion and failure of the implants. He is okay with that and signed the consent. SURGEON: Luigi Akers DO DESCRIPTION OF PROCEDURE: The patient was taken to operative suite, laid in supine position, given a general anesthetic and intubated. He was then transferred over the [place] table. A timeout was performed. The reduction was then made of the hip under x-ray. Then, the left hip was prepped and draped in sterile fashion. The limb was prepped and draped. An incision was made over the hip and the starting point was obtained with a pin and then with an awl and the guidewire was placed down the shaft. We then reamed starting with 8.5 up to 13, then 11 nail was placed down the shaft. Lag screw was then put in. Measured to be [address] The AR screw was attempted to put in, but sometimes kicked in the drill out of the guide. We did not put it at that time. The distal screw was then put in to perfect circles. A 48.5-mm screw was put in distally and then the nail was in good position and confirmed in AP and lateral as well as the screws and the sites were irrigated. The IT band was closed with proximal incision with a dlgiac-fu-gmhwn fashion #1 Vicryl. The skin was then closed with 2-0 Vicryl in inverted interrupted fashion all the incisions, all 3 of them and covered with glue and dressed with a Telfa, Tegaderm and ABD over the most proximal incision. He was on Eliquis, which increased risk of bleeding. The blood loss was approximately 200 mL. COMPLICATIONS: None. He was then transferred out of bed and taken to recovery in stable condition. TRANSINT:[id number] Voice Confirmation ID: [id number] DOCUMENT ID: [id number] LUIGI AKERS DO at 2207 CC: [id number] DICTATION DATE: 06/30/19 1053 TORPEDO MAN: 06/30/19 1901 ADM IN [facility] [address] [place] [place] [id number]
[2019-07-01] VITALS: BP 103/49
--- NOTE | 2019-07-01 | NUR ---
BLOOD ON GOWN. PT STATES HE IS UNSURE OF IT'S ORIGIN. WHEN ASKED WHERE HIS IV WAS, HE POINTED AT HIS BEDSIDE TABLE AND STATED HE TOOK IT OUT AND REMOVED HIS TELEMETRY BECAUSE HE THOUGHT WE WERE ABOUT DONE WITH HIM. INFORMED PT HE NEEDS TO KEEP IV AND MONITORING EQUIPMENT UNTIL DISCHARGE OR UNTIL DOCTOR ORDERS THEM TO BE REMOVED. PT VERBALIZED UNDERSTANDING. 22G IV RESITED TO RIGHT WRIST. PT TOLERATED WELL. MONITOR READING 116 UNCONTROLLED A FIB. WILL MONITOR CLOSELY.
[2019-07-01 01:44] LABS: APPEARANCE CLEAR (CLEAR); BILIRUBIN NEGATIVE (NEGATIVE); COLOR DK YELLOW (YELLOW); GLUCOSE NEGATIVE (NEGATIVE); KETONE NEGATIVE (NEGATIVE); NITRITE NEGATIVE (NEGATIVE); PROTEIN NEGATIVE (NEGATIVE); SPECIFIC GRAVITY 1.015 (1.005-1.020); UROBILINOGEN NORMAL (NORMAL)
--- NOTE | 2019-07-01 01:58 | NUR ---
I have reviewed this patient and I concur with the Shift Assessment completed by the Licensed Practical Nurse today this shift.
[2019-07-01 04:00] VITALS: BP 92/52
[2019-07-01 07:12] LABS: ALBUMIN 2.2 g/dL (3.4-5.0); BILIRUBIN - TOTAL 1.03 mg/dL (0.2-1.3); CALCIUM 8.2 mg/dL (8.5-10.1); CARBON DIOXIDE 23.9 mmol/L (21.0-32.0); POTASSIUM - SERUM 3.9 mmol/L (3.5-5.1); PROTEIN - SERUM 5.6 g/dL (6.4-8.2)
[2019-07-01 07:13] LABS: CREATININE - SERUM 1.8 mg/dL (0.6-1.3)
[2019-07-01 07:18] LABS: BASOPHILS 0.1 % (0-2); EOSINOPHILS 0.4 % (0-7); IMMATURE GRANULOCYTES 0.4 % (0-5); LYMPHOCYTES 11.4 % (15-50); MCH 29.8 pg (26.0-34.0); MCHC 31.7 g/dL (31.0-37.0); MONOCYTES 13.4 % (2-11); NEUTROPHILS 74.3 % (40-80); PLATELET COUNT 183 10x3/uL (130-400); RDW 14.8 % (11.5-14.5); WBC 14.3 10x3/uL (4.8-10.8)
[2019-07-01 07:19] LABS: HEMATOCRIT 24.9 % (42.0-54.0); HEMOGLOBIN 7.9 g/dL (13.5-17.5); RBC 2.65 10x6/uL (4.20-6.10)
[2019-07-01 09:01] VITALS: BP 118/47
--- NOTE | 2019-07-01 10:48 | NUR ---
PT ALERT X 4. BREATH SOUNDS CLEAR BILAT. IV TO RIGHT HAND, PATENT, DRESSING CDI. DRESSING TO LEFT HIP CHANGED PER ORDERS. PT REPORTING PAIN OF 5/10, MEDICATED PER ORDERS, WILL MONITOR. TELEMETRY IN PLACE. WORKED WITH PHYSICAL THERAPY, PT UNABLE TO TOLERATE AMBULATION, MINIMAL STANDING CAPABILITIES WITH WALKER AND MAX ASSIST. BED LOW, CALL LIGHT IN REACH. NO OTHER NEEDS AT THIS TIME.
--- NOTE | 2019-07-01 10:57 | NUR ---
CONFIRMED WITH LANCE LEWIS APRN TO TRANSFUSE PRBC.
[2019-07-01 16:49] VITALS: BP 128/59
[2019-07-01 20:00] VITALS: BP 103/53
[2019-07-02] VITALS (7 sets, daily range): BP systolic 116–138; BP diastolic 55–81
--- NOTE | 2019-07-02 01:06 | NUR ---
AWAKE,ALERT.NO COMPLAINTS VOICED. RESP UNALBORED. NO DISTRESS NOTED. IV INFUSING TO RIGHT HAND WITHOUT REDNESS OR EDEMA NOTED. CL IN REACH. AT BEDSIDE.
--- NOTE | 2019-07-02 03:42 | NUR ---
I have reviewed this patient and I concur with the Shift Assessment completed by the Licensed Practical Nurse today this shift.
[2019-07-02 06:09] LABS: ALBUMIN 1.8 g/dL (3.4-5.0); ANION GAP 11.8 mmol/L (8-16); BILIRUBIN - TOTAL 1.18 mg/dL (0.2-1.3); CARBON DIOXIDE 23.3 mmol/L (21.0-32.0); CREATININE - SERUM 1.4 mg/dL (0.6-1.3); POTASSIUM - SERUM 4.1 mmol/L (3.5-5.1); PROTEIN - SERUM 5.4 g/dL (6.4-8.2)
[2019-07-02 06:21] LABS: BASOPHILS 0.1 % (0-2); EOSINOPHILS 1.2 % (0-7); HEMATOCRIT 23.8 % (42.0-54.0); HEMOGLOBIN 7.8 g/dL (13.5-17.5); IMMATURE GRANULOCYTES 0.4 % (0-5); LYMPHOCYTES 11.2 % (15-50); MCH 30.8 pg (26.0-34.0); MCHC 32.8 g/dL (31.0-37.0); MCV 94.1 fL (80.0-100.0); MEAN PLATELET VOLUME 10.3 fL (7.4-10.4); NEUTROPHILS 73.1 % (40-80); PLATELET COUNT 182 10x3/uL (130-400); RBC 2.53 10x6/uL (4.20-6.10); WBC 12.1 10x3/uL (4.8-10.8)
--- NOTE | 2019-07-02 08:20 | NUR ---
PT C/O CHEST PAIN TO DR AKERS, VITALS WNL, STATES IT HAS BEEN HURTIN FOR ABOUT 2 HOURS, PT HAD NOT MENTIONED THIS TO ANY STAFF, RT IN ROOM TO DO EKG, IV INFUSING, FAMILY IN ROOM, CONT TO MONITOR CHEST PAIN, WILL INFUSE BLOOD TODAY
--- NOTE | 2019-07-02 09:09 | NUR ---
1ST UNIT OF BLOOD INFUSING, CONT TO MONITOR RESP STATUS AND VITALS
[2019-07-02 10:55] LABS: CKMB 0.8 U/L (0.0-3.6); CREATINE KINASE 171 UL (21-232)
[2019-07-02 10:56] LABS: TROPONIN-I < 0.017 ng/mL (0.000-0.060)
[2019-07-02 12:59] LABS: CKMB 0.8 U/L (0.0-3.6); CREATINE KINASE 178 UL (21-232); TROPONIN-I < 0.017 ng/mL (0.000-0.060)
--- NOTE | 2019-07-02 14:15 | NUR ---
2ND UNIT OF BLOOD STARTED
[2019-07-02 18:27] LABS: CKMB 1.1 U/L (0.0-3.6); CREATINE KINASE 156 UL (21-232)
[2019-07-02 18:30] LABS: TROPONIN-I < 0.017 ng/mL (0.000-0.060)
--- NOTE | 2019-07-02 20:20 | NUR ---
SITTING UP IN BED. ALERT AND ORIENTED X4. RESP EVEN AND NONLABORED. DENIES PAIN. DRSG TO LT HIP IS C/D/I. EDEMA NOTED TO BLE. SCDS IN USE BILAT. TELEMETRY SHOWS UNCONTROLLED AFIB WITH RATE OF 105. NS @ 30 MLHR INFUSING IN RT WRIST. SALINE LOCK NOTED TO RT HAND. FAMILY AT BEDSIDE. BED ALARM ON FOR PT SAFETY. SR ELEVATED X2. CL IN REACH.
--- NOTE | 2019-07-03 01:21 | NUR ---
LYING IN BED WITH EYES CLOSED. RESP EVEN AND NONLABORED. NO DISTRESS. BED ALARM ON. CL IN REACH.
[2019-07-03 05:01] VITALS: BP 131/72
[2019-07-03 06:25] LABS: ALBUMIN 1.9 g/dL (3.4-5.0); ANION GAP 11.8 mmol/L (8-16); BILIRUBIN - TOTAL 1.62 mg/dL (0.2-1.3); CALCIUM 8.5 mg/dL (8.5-10.1); CARBON DIOXIDE 26.8 mmol/L (21.0-32.0); CREATININE - SERUM 1.3 mg/dL (0.6-1.3); POTASSIUM - SERUM 3.6 mmol/L (3.5-5.1); PROTEIN - SERUM 6.3 g/dL (6.4-8.2)
[2019-07-03 06:28] LABS: BASOPHILS 0.1 % (0-2); EOSINOPHILS 1.2 % (0-7); HEMOGLOBIN 9.2 g/dL (13.5-17.5); IMMATURE GRANULOCYTES 0.7 % (0-5); LYMPHOCYTES 11.8 % (15-50); MCH 29.4 pg (26.0-34.0); MCHC 32.2 g/dL (31.0-37.0); MEAN PLATELET VOLUME 10.1 fL (7.4-10.4); NEUTROPHILS 73.2 % (40-80); RDW 16.1 % (11.5-14.5); WBC 12.2 10x3/uL (4.8-10.8)
[2019-07-03 06:35] LABS: HEMATOCRIT 28.6 % (42.0-54.0); MCV 91.4 fL (80.0-100.0); PLATELET COUNT 219 10x3/uL (130-400); RBC 3.13 10x6/uL (4.20-6.10)
[2019-07-03 08:05] VITALS: BP 136/66
--- NOTE | 2019-07-03 09:25 | NUR ---
PT SITTING UP IN CHAIR AT BEDSIDE. FAMILY AT BEDSIDE. RESP EVEN AND UNLABORED. RATES PAIN 4/10 AT THIS TIME. IV TO RIGHT HAND WITH NS @ 75ML/HR INFUSING VIA PUMP. SITE WITHOUT REDNESS OR EDEMA. SALINE LOC TO RIGHT WRIST, SITE WITHOUT REDNESS OR EDEMA. DENIES FURTHER NEEDS AT THIS TIME. CL WITHIN REACH. ENCOURAGED TO CALL WITH NEEDS. CONTINUE POC
--- NOTE | 2019-07-03 11:40 | MORECARE ---
CASE MANAGEMENT DISCHARGE SUMMARY PATIENT: TICO AGGARWAL UNIT: [id number] ADM DATE: 06/29/19 AGE: 84 : 37 SEX: M ROOM/BED: D.2208 AUTHOR: MAYE,DOC PHYSICIAN: REFERRING PHYSICIAN: STEPHANE BOOGIE MD DATE OF SERVICE: 07/03/19 Discharge Plan Patient Name: TICO AGGARWAL Facility: [facility]:[place] : 1935 Planned Disposition: Home Anticipated Discharge Date: 07/03/19 Discharge Date: Expected LOS: 4 Initial Reviewer: [email or web address] Initial Review Date: 06/29/2019 Generated: 07/03/19 12:39 pm DCP- Discharge Planning Updated by [email or web address]: Pau Kwan on 06/29/19 4:[address] DC PLAN: Home with [facility] health vs SNF @ [facility]. Both out of [place]. ANTICIPATED DC NEEDS: HH vs SNF. CM met with patient and his daughter, Sheron Morales, to complete initial dc planning assessment. CM educated patient on the CM role and verbal consent given by patient to complete assessment. CM verified patient's address, phone number, and emergency contact phone numbers. Patient lives at home alone and reports he is independent with his ADL's. At discharge patient plans to return return home if able with [facility] out of [place] and feels this is a safe discharge. If he require rehab post op he will return to [facility] in [place]. Plan will depend upon how he does. He was there several months ago and stated he would go back if he had too. SERGE form presented, explained and signed by the patient's daughter for 1.[facility] ([place]) 2.[facility] SNF Signed form placed on patient's chart and a signed copy left with the patient for her records. Transportation provider at discharge will be his daughter Sheron. CM will continue to follow and will assist as needed with dc plans/needs. Pau Kwan RN, [facility] DCPIA - Discharge Planning Initial Assessment Updated by [email or web address]: Pau Kwan on 06/29/19 5:20 pm * Is the patient Alert and Oriented? Yes * How many steps to enter\exit or inside your home? * PCP Dr. Robe [facility] * Pharmacy [facility] * Preadmission Environment Home Alone * ADLs Independent * Equipment Bedside Commode Rolling Walker Wheelchair * List name and contact numbers for known caregivers / representatives who currently or will assist patient after discharge: Lynsey Aggarwal - dtr in law - [phone] Sheron Morales - daughter - [phone] * Verbal permission to speak to the caregivers and representatives has been obtained from the patient. Yes * Community resources currently utilized None * Additional services required to return to the preadmission environment? No * Can the patient safely return to the preadmission environment? Yes * Has this patient been hospitalized within the prior 30 days at any hospital? No External Providers External Provider: OTHER-OTHER Next Contact Date: Service Request Date: Service Type: Resolution: Reviewer: Comments: Coverage Notice Reviewer: [email or web address] Stanislaw Oconnell Notice Issued Date-Time: 07/03/2019 11:25 Notice Type: IM Discharge Notice Notice Delivered To: Patient Relationship to Patient: Charging Board Operator Name: Delivery Method: HAND - Hand Delivered Yarelis Days: Prior Verbal Notification: Recipient Understood Notice: Yes Recipient Signature: Yes Med Rec Note Co-signed by Attending: Coverage Notice Comment: Last DP export: 06/29/19 4:31 Patient Name: TICO AGGARWAL Page 21234 at 1140 All edits/amendments must be made on the electronic document DICTATION DATE: 07/03/19 113 OTOLARYNGOLOGY TEACHER: CORINE 07/03/19 1139 RPT#: [id number] DC DATE: STATUS: ADM IN [facility] [address] [place] [address] END OF REPORT
--- NOTE | 2019-07-03 11:46 | MORECARE ---
CASE MANAGEMENT DISCHARGE SUMMARY PATIENT: TICO MCLAUGHLIN UNIT: [id number] ADM DATE: 06/29/19 AGE: 84 : 37 SEX: M ROOM/BED: D.2208 AUTHOR: MAYE,DOC PHYSICIAN: REFERRING PHYSICIAN: STEPHANE BOOGIE MD DATE OF SERVICE: 07/03/19 Discharge Plan Patient Name: TICO MCLAUGHLIN Facility: [facility]:[place] : 1935 Planned Disposition: Home Anticipated Discharge Date: 07/03/19 Discharge Date: Expected LOS: 4 Initial Reviewer: [email or web address] Initial Review Date: 06/29/2019 Generated: 07/03/19 12:46 pm Comments DCP- Discharge Planning Updated by [email or web address]: Unique Oconnell on 07/03/19 10:[address] SPOKE WITH PATIENT ABOUT DC PLANNING, PATIENT WILL NEED SKILLED REHAB. HE WOULD LIKE TO GO TO [facility] IN [place] ([phone]) I CALLED AND SPOKE WITH [facility], REFERRAL SENT OVER THERE IT WAS FAXED TO [phone] IMM ALSO SERVED AND EXPLAINED TO PATIENT AND SON. CM WILL CONTINUE TO FOLLOW AND ASSIST WITH DC PLANNING NEEDED DCP- Discharge Planning Updated by [email or web address]: Pau Kwan on 06/29/19 4:[address] DC PLAN: Home with [facility] vs SNF @ [facility]. Both out of [place]. ANTICIPATED DC NEEDS: HH vs SNF. CM met with patient and his daughter, Sheron Morales, to complete initial dc planning assessment. CM educated patient on the CM role and verbal consent given by patient to complete assessment. CM verified patient's address, phone number, and emergency contact phone numbers. Patient lives at home alone and reports he is independent with his ADL's. At discharge patient plans to return return home if able with [facility] of [place] and feels this is a safe discharge. If he require rehab post op he will return to [facility] in [place]. Plan will depend upon how he does. He was there several months ago and stated he would go back if he had too. SERGE form presented, explained and signed by the patient's daughter for 1.[facility] ([place]) 2.[facility] SNF Signed form placed on patient's chart and a signed copy left with the patient for her records. Transportation provider at discharge will be his daughter Sheron. CM will continue to follow and will assist as needed with dc plans/needs. Pau Kwan RN, [facility] DCPIA - Discharge Planning Initial Assessment Updated by [email or web address]: Pau Kwan on 06/29/19 5:20 pm * Is the patient Alert and Oriented? Yes * How many steps to enter\exit or inside your home? * PCP Dr. Robe [facility] * Pharmacy [facility] * Preadmission Environment Home Alone * ADLs Independent * Equipment Bedside Commode Rolling Walker Wheelchair * List name and contact numbers for known caregivers / representatives who currently or will assist patient after discharge: Lynsey Archerlin - dtr in law - [phone] Sheron Morales - daughter - [phone] * Verbal permission to speak to the caregivers and representatives has been obtained from the patient. Yes * Community resources currently utilized None * Additional services required to return to the preadmission environment? No * Can the patient safely return to the preadmission environment? Yes * Has this patient been hospitalized within the prior 30 days at any hospital? No Coverage Notice Reviewer: [email or web address] Stanislaw Oconnell Notice Issued Date-Time: 07/03/2019 11:25 Notice Type: IM Discharge Notice Notice Delivered To: Patient Relationship to Patient: Plant Scientist Name: Delivery Method: HAND - Hand Delivered Yarelis Days: Prior Verbal Notification: Recipient Understood Notice: Yes Recipient Signature: Yes Med Rec Note Co-signed by Attending: Coverage Notice Comment: Last DP export: 07/03/19 10:40 Patient Name: TICO MCLAUGHLIN Page 72080 at 1146 All edits/amendments must be made on the electronic document DICTATION DATE: 07/03/19 1146 ELEVATOR OPERATOR SERVICE: CORINE 07/03/19 1146 RPT#: [id number] DC DATE: STATUS: ADM IN [facility] [address] [place] [address] END OF REPORT
[2019-07-03 12:45] VITALS: BP 112/66
[2019-07-03] MEDS ORDERED: HYDROCODON-ACE1 EA10 PO (12:45)
--- NOTE | 2019-07-03 15:14 | NUR ---
Nutrition follow-up: Diet: regular PO intake 100% of most meals Labs reviewed Wt: 265# RDN following.
[2019-07-03 16:17] VITALS: BP 116/63
--- NOTE | 2019-07-03 16:47 | MORECARE ---
CASE MANAGEMENT DISCHARGE SUMMARY PATIENT: TICO AGGARWAL UNIT: [id number] ADM DATE: 06/29/19 AGE: 84 : 37 SEX: M ROOM/BED: D.2208 AUTHOR: MAYEDOC PHYSICIAN: REFERRING PHYSICIAN: STEPHANE BOOGIE MD DATE OF SERVICE: 07/03/19 Discharge Plan Patient Name: TICO AGGARWAL Facility: [facility]:[place] : 1935 Planned Disposition: Home Anticipated Discharge Date: 07/03/19 Discharge Date: Expected LOS: 4 Initial Reviewer: [email or web address] Initial Review Date: 06/29/2019 Generated: 07/03/19 5:46 pm Comments DCP- Discharge Planning Updated by [email or web address]: Unique Oconnell on 07/03/19 3:[address] [facility] HAS ACCEPTED PATIENT, THEY WILL BE EHRE TOMORROW AT 10:00 AM TO TRANSPORT PATIENT. DCP- Discharge Planning Updated by [email or web address]: Unique Oconnell on 07/03/19 10:[address] SPOKE WITH PATIENT ABOUT DC PLANNING, PATIENT WILL NEED SKILLED REHAB. HE WOULD LIKE TO GO TO [facility] IN [place] ([phone]) I CALLED AND SPOKE WITH EUNICE, REFERRAL SENT OVER THERE IT WAS FAXED TO [phone] IMM ALSO SERVED AND EXPLAINED TO PATIENT AND SON. CM WILL CONTINUE TO FOLLOW AND ASSIST WITH DC PLANNING NEEDED DCP- Discharge Planning Updated by [email or web address]: Pau Kwan on 06/29/19 4:[address] DC PLAN: Home with [facility] vs SNF @ [facility]. Both out of [place]. ANTICIPATED DC NEEDS: HH vs SNF. CM met with patient and his daughter, Sheron Morales, to complete initial dc planning assessment. CM educated patient on the CM role and verbal consent given by patient to complete assessment. CM verified patient's address, phone number, and emergency contact phone numbers. Patient lives at home alone and reports he is independent with his ADL's. At discharge patient plans to return return home if able with [facility] out of [place] and feels this is a safe discharge. If he require rehab post op he will return to [facility] in [place]. Plan will depend upon how he does. He was there several months ago and stated he would go back if he had too. SERGE form presented, explained and signed by the patient's daughter for 1.[facility] ([place]) 2.[facility] SNF Signed form placed on patient's chart and a signed copy left with the patient for her records. Transportation provider at discharge will be his daughter Sheron. CM will continue to follow and will assist as needed with dc plans/needs. Pau Kwan RN, [facility] DCPIA - Discharge Planning Initial Assessment Updated by [email or web address]: Pau Kwan on 06/29/19 5:20 pm * Is the patient Alert and Oriented? Yes * How many steps to enter\exit or inside your home? * PCP Dr. Robe Miles * Pharmacy [facility] * Preadmission Environment Home Alone * ADLs Independent * Equipment Bedside Commode Rolling Walker Wheelchair * List name and contact numbers for known caregivers / representatives who currently or will assist patient after discharge: Lynsey Aggarwal - dtr in law - [phone] Sheron Morales - daughter - [phone] * Verbal permission to speak to the caregivers and representatives has been obtained from the patient. Yes * Community resources currently utilized None * Additional services required to return to the preadmission environment? No * Can the patient safely return to the preadmission environment? Yes * Has this patient been hospitalized within the prior 30 days at any hospital? No Coverage Notice Reviewer: [id number] - Unique Oconnell Notice Issued Date-Time: 07/03/2019 11:25 Notice Type: IM Discharge Notice Notice Delivered To: Patient Relationship to Patient: Press Assistant And Feeder Name: Delivery Method: HAND - Hand Delivered Yarelis Days: Prior Verbal Notification: Recipient Understood Notice: Yes Recipient Signature: Yes Med Rec Note Co-signed by Attending: Coverage Notice Comment: Last DP export: 07/03/19 10:46 Patient Name: TICO AGGARWAL Page [id number] at 1647 All edits/amendments must be made on the electronic document DICTATION DATE: 12/30/19 1646 AGRIBUSINESS PROFESSOR: DM 07/03/191645 RPT#: [id number] DC DATE: STATUS: ADM IN [facility] [address] [place] [address] END OF REPORT
[2019-07-03 19:30] VITALS: BP 124/64
--- NOTE | 2019-07-03 19:30 | NUR ---
SUPINE IN BED, ORIENTED X 4. DENIES PAIN AT THIS TIME, SON AT BEDSIDE. DRESSING ON LEFT SIDE OF LEFT KNEE C/D/I. DENIES NEEDS AT THIS TIME, WILL CONTINUE TO MONITOR.
[2019-07-04 00:30] VITALS: BP 124/70
[2019-07-04 04:50] VITALS: BP 102/76
[2019-07-04 07:09] LABS: ALBUMIN 2.2 g/dL (3.4-5.0); ANION GAP 14.1 mmol/L (8-16); BILIRUBIN - TOTAL 1.85 mg/dL (0.2-1.3); CALCIUM 8.8 mg/dL (8.5-10.1); CARBON DIOXIDE 29.5 mmol/L (21.0-32.0); CREATININE - SERUM 1.3 mg/dL (0.6-1.3); POTASSIUM - SERUM 3.6 mmol/L (3.5-5.1)
--- NOTE | 2019-07-04 07:15 | NUR ---
PT RESTING IN BED WITH EYES OPEN, ALERT AND ORIENTED, FAMILY AT THE BEDSIDE. IV LOCATED TO RIGHT WRIST CURRENTLY SL, IV LOCATED TO RIGHT FA RUNNING NS @ 75ML. NO S/S OF DISTRESS AT THIS TIME, DENIES NEEDS, WILL CONT TO MONITOR.
[2019-07-04 07:43] LABS: BASOPHILS 0.2 % (0-2); EOSINOPHILS 1.4 % (0-7); HEMATOCRIT 30.7 % (42.0-54.0); IMMATURE GRANULOCYTES 0.7 % (0-5); LYMPHOCYTES 11.4 % (15-50); MCH 29.7 pg (26.0-34.0); MCHC 32.6 g/dL (31.0-37.0); MCV 91.1 fL (80.0-100.0); MEAN PLATELET VOLUME 11.1 fL (7.4-10.4); MONOCYTES 12.5 % (2-11); NEUTROPHILS 73.8 % (40-80); RBC 3.37 10x6/uL (4.20-6.10); RDW 15.5 % (11.5-14.5); WBC 12.2 10x3/uL (4.8-10.8)
[2019-07-04 07:48] LABS: PLATELET COUNT 304 10x3/uL (130-400)
[2019-07-04] MEDS ORDERED: DOXYCYCLINE HY100 M2 PO (08:29)
[2019-07-04 09:19] VITALS: BP 113/64
--- NOTE | 2019-07-04 10:12 | NUR ---
DC PAPERS SIGNED, DRESSING CHANGED TO HIP, WAITING FOR RIDE.
--- NOTE | 2019-07-04 11:28 | NUR ---
PT DC`D VIA WHEELCHAIR AND STAFF OF [facility].
--- NOTE | 2019-07-04 11:39 | MORECARE ---
CASE MANAGEMENT DISCHARGE SUMMARY PATIENT: TICO MCLAUGHLIN UNIT: [id number] ADM DATE: 06/29/19 AGE: 84 : 37 SEX: M ROOM/BED: D.2208 AUTHOR: MAYE,DOC PHYSICIAN: REFERRING PHYSICIAN: STEPHANE BOOGIE MD DATE OF SERVICE: 07/04/19 Discharge Plan Patient Name: TICO MCLAUGHLIN Facility: [facility]:[place] : 1935 Planned Disposition: Home Anticipated Discharge Date: 07/03/19 Discharge Date: 07/04/2019 Expected LOS: 4 Initial Reviewer: [email or web address] Initial Review Date: 06/29/2019 Generated: 07/04/19 12:39 pm Comments DCP- Discharge Planning Updated by [email or web address]: Unique Oconnell on 07/04/19 10:[address] Patient discharged today to a skilled bed at [facility] via their transportation Son at bedside DCP- Discharge Planning Updated by [email or web address]: Unique Oconnell on 07/03/19 3:[address] [facility] HAS ACCEPTED PATIENT, THEY WILL BE EHRE TOMORROW AT 10:00 AM TO TRANSPORT PATIENT. DCP- Discharge Planning Updated by [email or web address]: Unique Oconnell on 07/03/19 10:[address] SPOKE WITH PATIENT ABOUT DC PLANNING, PATIENT WILL NEED SKILLED REHAB. HE WOULD LIKE TO GO TO [facility] IN [place] ([phone]) I CALLED AND SPOKE WITH SYLVIA DAWSON SENT OVER THERE IT WAS FAXED TO [phone] IMM ALSO SERVED AND EXPLAINED TO PATIENT AND SON. CM WILL CONTINUE TO FOLLOW AND ASSIST WITH DC PLANNING NEEDED DCP- Discharge Planning Updated by [email or web address]: Pau Kwan on 06/29/19 4:[address] DC PLAN: Home with [facility] health vs SNF @ [facility]. Both out of [place]. ANTICIPATED DC NEEDS: HH vs SNF. CM met with patient and his daughter, Sheron Morales, to complete initial dc planning assessment. CM educated patient on the CM role and verbal consent given by patient to complete assessment. CM verified patient's address, phone number, and emergency contact phone numbers. Patient lives at home alone and reports he is independent with his ADL's. At discharge patient plans to return return home if able with [facility] out of [place] and feels this is a safe discharge. If he require rehab post op he will return to [facility] in [place]. Plan will depend upon how he does. He was there several months ago and stated he would go back if he had too. SERGE form presented, explained and signed by the patient's daughter for 1.[facility] ([place]) 2.[facility] Signed form placed on patient's chart and a signed copy left with the patient for her records. Transportation provider at discharge will be his daughter Sheron. CM will continue to follow and will assist as needed with dc plans/needs. Pau Kwan RN, [facility] DCPIA - Discharge Planning Initial Assessment Updated by [email or web address]: Pau Kwan on 06/29/19 5:20 pm * Is the patient Alert and Oriented? Yes * How many steps to enter\exit or inside your home? * PCP Dr. Robe Miles * Pharmacy [facility] * Preadmission Environment Home Alone * ADLs Independent * Equipment Bedside Commode Rolling Walker Wheelchair * List name and contact numbers for known caregivers / representatives who currently or will assist patient after discharge: Lynsey Jasen - dtr in law - [phone] Sheron Mroales - daughter - [phone] * Verbal permission to speak to the caregivers and representatives has been obtained from the patient. Yes * Community resources currently utilized None * Additional services required to return to the preadmission environment? No * Can the patient safely return to the preadmission environment? Yes * Has this patient been hospitalized within the prior 30 days at any hospital? No Coverage Notice Reviewer: [id number] Stanislaw Oconnell Notice Issued Date-Time: 07/03/2019 11:25 Notice Type: IM Discharge Notice Notice Delivered To: Patient Relationship to Patient: General Machinist Name: Delivery Method: HAND - Hand Delivered Yarelis Days: Prior Verbal Notification: Recipient Understood Notice: Yes Recipient Signature: Yes Med Rec Note Co-signed by Attending: Coverage Notice Comment: Last DP export: 07/03/19 3:47 Patient Name: TICO MCLAUGHLIN Page [id number] at 1139 All edits/amendments must be made on the electronic document DICTATION DATE: 07/04/191138 [employer] OFFICER: CORINE 07/04/191138 RPT#: [id number] DC DATE:07/04/19 STATUS: DIS IN [facility] [address] [place] [address] END OF REPORT
--- NOTE | 2019-07-08 09:53 | MORECARE ---
CASE MANAGEMENT DISCHARGE SUMMARY PATIENT: TICO MCLAUGHLIN UNIT: [id number] ADM DATE: 06/29/19 AGE: 84 : 37 SEX: M ROOM/BED: D.2208 AUTHOR: MAYE,DOC PHYSICIAN: REFERRING PHYSICIAN: STEPHANE BOOGIE MD DATE OF SERVICE: 07/08/19 Discharge Plan Patient Name: TICO MCLAUGHLIN Facility: [facility]:[place] : 1935 Planned Disposition: Home Anticipated Discharge Date: 07/03/19 Discharge Date: 07/04/2019 Expected LOS: 4 Initial Reviewer: [email or web address] Initial Review Date: 06/29/2019 Generated: 07/08/19 10:53 am Comments DCP- Discharge Planning Updated by [email or web address]: Unique Oconnell on 07/04/19 10:[address] Patient discharged today to a skilled bed at [facility] [place] via their transportation Son at bedside DCP- Discharge Planning Updated by [email or web address]: Unique Oconnell on 07/03/19 3:[address] [facility] HAS ACCEPTED PATIENT, THEY WILL BE EHRE TOMORROW AT 10:00 AM TO TRANSPORT PATIENT. DCP- Discharge Planning Updated by [email or web address]: Unique Oconnell on 07/03/19 10:[address] SPOKE WITH PATIENT ABOUT DC PLANNING, PATIENT WILL NEED SKILLED REHAB. HE WOULD LIKE TO GO TO [facility] IN [place] ([phone]) I CALLED AND SPOKE WITH SYLVIA DAWSON SENT OVER THERE IT WAS FAXED TO [phone] IMM ALSO SERVED AND EXPLAINED TO PATIENT AND SON. CM WILL CONTINUE TO FOLLOW AND ASSIST WITH DC PLANNING NEEDED DCP- Discharge Planning Updated by [email or web address]: Pau Kwan on 06/29/19 4:[address] DC PLAN: Home with [facility] health vs SNF @ [facility]. Both out of [place]. ANTICIPATED DC NEEDS: HH vs SNF. CM met with patient and his daughter, Sheron Morales, to complete initial dc planning assessment. CM educated patient on the CM role and verbal consent given by patient to complete assessment. CM verified patient's address, phone number, and emergency contact phone numbers. Patient lives at home alone and reports he is independent with his ADL's. At discharge patient plans to return return home if able with [facility] out of [place] and feels this is a safe discharge. If he require rehab post op he will return to [facility] in [place]. Plan will depend upon how he does. He was there several months ago and stated he would go back if he had too. SERGE form presented, explained and signed by the patient's daughter for 1.[facility] ([place]) 2.[facility] Signed form placed on patient's chart and a signed copy left with the patient for her records. Transportation provider at discharge will be his daughter Sheron. CM will continue to follow and will assist as needed with dc plans/needs. Pau Kwan RN, [facility] DCPIA - Discharge Planning Initial Assessment Updated by [email or web address]: Pau Kwan on 06/29/19 5:20 pm * Is the patient Alert and Oriented? Yes * How many steps to enter\exit or inside your home? * PCP Dr. Robe Miles * Pharmacy [facility] * Preadmission Environment Home Alone * ADLs Independent * Equipment Bedside Commode Rolling Walker Wheelchair * List name and contact numbers for known caregivers / representatives who currently or will assist patient after discharge: Lynsey Jasen - dtr in law - [phone] Sheorn Morales - daughter - [phone] * Verbal permission to speak to the caregivers and representatives has been obtained from the patient. Yes * Community resources currently utilized None * Additional services required to return to the preadmission environment? No * Can the patient safely return to the preadmission environment? Yes * Has this patient been hospitalized within the prior 30 days at any hospital? No Coverage Notice Reviewer: [email or web address] Stanislaw Oconnell Notice Issued Date-Time: 07/03/2019 11:25 Notice Type: IM Discharge Notice Notice Delivered To: Patient Relationship to Patient: Visual Presentation Manager Name: Delivery Method: HAND - Hand Delivered Yarelis Days: Prior Verbal Notification: Recipient Understood Notice: Yes Recipient Signature: Yes Med Rec Note Co-signed by Attending: Coverage Notice Comment: Last DP export: 07/04/19 10:40 Patient Name: TICO MCLAUGHLIN Page 62021 at 0953 All edits/amendments must be made on the electronic document DICTATION DATE: 07/08/19952 OUTSIDE SALES ADVERTISING EXECUTIVE: CORINE 07/08/19952 RPT#: [id number] DC DATE:07/04/19 STATUS: DIS IN [facility] [address] [place] [address] END OF REPORT
== END 2019-07-04 11:29 | DRG 480 ==
LOC: D.ER 14:00 → D.MS 15:53
PROVIDERS: Family Medicine; Orthopaedic Surgery; ADMIT Internal Medicine Nephrology; ATTEND Internal Medicine Nephrology
PROC: 0QS706Z Reposition Left Upper Femur with Intramedullary Internal Fixation Device, Open Approach (ICD-10-PCS; principal; 2019-06-30 16:00)
DX: S72.142A Displaced intertrochanteric fracture of left femur, initial encounter for closed fracture (principal); E43 Unspecified severe protein-calorie malnutrition; D62 Acute posthemorrhagic anemia; I48.20 Chronic atrial fibrillation, unspecified; W18.30XA Fall on same level, unspecified, initial encounter; Y92.009 Unspecified place in unspecified non-institutional (private) residence as the place of occurrence of the external cause; Z79.01 Long term (current) use of anticoagulants; I10 Essential (primary) hypertension; M19.90 Unspecified osteoarthritis, unspecified site; N40.0 Benign prostatic hyperplasia without lower urinary tract symptoms; E66.9 Obesity, unspecified; Z68.35 Body mass index [BMI] 35.0-35.9, adult

== ENCOUNTER 2019-07-14 18:03 | Inpatient (IN) | payer MEDICARE, OTHER ==
[2019-07-14] VITALS (21 sets, daily range): BP systolic 70–116; BP diastolic 41–84; BMI 32.3
[~2019-07-14] VITALS: Ht 185.4 cm; Wt 119.3 kg
--- NOTE | ~2019-07-14 | CN ---
PATIENT NAME:TICO AGGARWAL MEDICAL RECORD: [id number] : 39 LOCATION:STEPHANY.2303 ADMIT DATE: 07/14/19 ACCOUNT: [id number] CONSULTING PHYSICIAN: PRUDENCIO SMITH MD REFERRING PHYSICIAN: HARDIK THAKKAR MD DATE OF CONSULTATION: 07/15/2019 CONSULT REQUESTING PHYSICIAN: Hardik Thakkar MD REASON FOR CONSULTATION: Septic shock, hypotension, acute hypoxic respiratory failure. HISTORY OF PRESENT ILLNESS: Mr. Aggarwal is an 84-year-old gentleman who was admitted from the [facility] for hypotension, bradycardia and sepsis. He was transferred to [facility] for advanced care. Now, the patient is awake and alert. The patient is hypotensive. He required Levophed to keep his systolic blood pressure above 90. He denies any fever or chills. There is cough with very little sputum production. He is feeling very weak and lethargic. Recently, the patient was hospitalized for total knee replacement and then he had a fall and he underwent left ORIF and then discharged to rehab. REVIEW OF SYSTEMS: Mainly in the history of present illness. PAST MEDICAL HISTORY: 1. Hypertension. 2. Atrial fibrillation, on chronic anticoagulation. 3. History of skin cancer. 4. History of transient ischemic attack. 5. Osteoarthritis. PAST SURGICAL HISTORY: 1. He had left knee replacement. 2. He had left total hip replacement. 3. Cataract surgery. 4. Foot surgery. 5. TURP. ALLERGIES: There are no known drug allergies. MEDICATIONS: He is on Levophed IV, vancomycin IV, Zosyn, IV. His all other medication is reviewed. PERSONAL AND SOCIAL HISTORY: The patient is a nonsmoker, nondrinker. FAMILY HISTORY: Significant for cardiovascular diseases. PHYSICAL EXAMINATION: GENERAL: Now, the patient is lying comfortably in bed. He is not in acute distress. VITAL SIGNS: The blood pressure is 108-117/62, pulse is 81, respirations 16, temperature is 97.6. SpO2 is 100% on 2 liters nasal cannula. HEENT: Conjunctivae are pink. Sclerae are not icteric. NECK: Supple, no JVD. CHEST: There are crackles at the right bases. No wheezing. CONSULT REPORT [id number] TICO AGGARWAL HEART: Rate and rhythm is irregular. Normal sound. No murmur. ABDOMEN: Soft, bowel sounds present. No hepatosplenomegaly. RECTAL: Deferred. EXTREMITIES: No cyanosis, no clubbing, no pedal edema. CENTRAL NERVOUS SYSTEM: The patient is awake and alert. There is no obvious cranial nerve abnormality. The gait was not tested. CHEST RADIOGRAPH: There is a questionable infiltrate, right lower lobe. OTHER LABORATORY DATA: CBC; the WBC is 17,000, hemoglobin 11.1, hematocrit 34.6, the platelet count is 476. Chemistry; sodium is 136, potassium 5.2, BUN is 85, creatinine 2.7. IMPRESSION: 1. Acute hypoxic respiratory failure. 2. Pneumonia, right lower lobe, possible hospital-acquired pneumonia with the patient recent hospitalization. 3. Septic shock. 4. Hypotension. 5. Leukocytosis. 6. Acute on chronic renal failure. 7. Status post left hip replacement, status post left knee replacement. 8. Atrial fibrillation, on chronic anticoagulation. RECOMMENDATION: 1. Continue supplemental oxygen. 2. Continue vancomycin and Zosyn. Follow up on blood cultures. 3. The patient will need a central line. 4. Levophed, titrate to systolic blood pressure above 90. 5. Fluid resuscitation per nephrology. 6. Follow up labs and chest radiograph. Thank you for involving me in the care of Mr. Aggarwal. The critical care time was [address] Thakkar. TRANSINT:[id number] Voice Confirmation ID: [id number] DOCUMENT ID: [id number] PRUDENCIO SMITH MD CC: [id number] DICTATION DATE: 07/15/19 1056 PHYSICIAN SCIENTIST: 07/15/19 1329 ADM IN [place] [address] [place] [address]
[~2019-07-14 18:03] MED LIST changes: +ALDACTONE25 MG PO; +BUMEX2 MG PO; +DOXYCYCLINE HY100 M2 PO; +GABAPENTIN300 MG PO; +K-DUR20 MEQ PO
[2019-07-14 19:34] LABS: HEMOGLOBIN 12.7 g/dL (13.5-17.5); MCH 29.6 pg (26.0-34.0); MCHC 31.8 g/dL (31.0-37.0); MCV 93.2 fL (80.0-100.0); MEAN PLATELET VOLUME 10.8 fL (7.4-10.4); PLATELET COUNT 652 10x3/uL (130-400); RBC 4.29 10x6/uL (4.20-6.10); RDW 15.3 % (11.5-14.5); WBC 21.7 10x3/uL (4.8-10.8)
[2019-07-14 19:47] LABS: APTT 32.2 SECONDS (22.8-39.4); INR 1.27 (0.85-1.17); PROTIME 15.8 SECONDS (11.6-15.0)
[2019-07-14 19:48] LABS: ALKALINE PHOSPHATASE 224 U/L (46-116); ALT (SGPT) 46 U/L (10-68); CALC OSMOLALITY 296 mosm/kg (275-300); CALCIUM 8.6 mg/dL (8.5-10.1); CARBON DIOXIDE 24.8 mmol/L (21.0-32.0); CHLORIDE - SERUM 96 mmol/L (98-107); CREATININE - SERUM 3.1 mg/dL (0.6-1.3); GLUCOSE 108 mg/dL (74-106); POTASSIUM - SERUM 5.2 mmol/L (3.5-5.1); PROTEIN - SERUM 7.4 g/dL (6.4-8.2); SODIUM 133 mmol/L (136-145); UREA NITROGEN 96 mg/dL (7-18); eGFR NON AFRICAN AMERICAN 20 mL/min (90-120)
[2019-07-14 19:56] LABS: TROPONIN-I < 0.017 ng/mL (0.000-0.060)
[2019-07-14 20:05] LABS: CREATINE KINASE 4284 UL (21-232)
--- NOTE | 2019-07-14 20:10 | NUR ---
PT RECIEVED FROM ER, A/OX4, LUNGS CLEAR, LEFT PIV INTACT WITH LEVOPHED GTT @ 8MCG, RIGHT WRIST PIV CLOTTED, NIXON PATENT TO BSD WITH STRAW COLORED URINE, NO C/O @ THIS TIME
[2019-07-14 20:16] LABS: EOSINOPHILS 4 % (0-7); LYMPHOCYTES 16 % (15-50); MONOCYTES 6 % (2-11); NEUTROPHILS 74 % (40-80); PLATELET ESTIMATE INCREASED
--- NOTE | 2019-07-14 22:10 | NUR ---
20 GAUGE IV STARTED IN RIGHT AC, INFUSING DOBUTAMINE @ 5MCG/KG/MIN, PT RESTING QUIETLY WITHOUT DISTRESS
--- NOTE | 2019-07-14 23:40 | NUR ---
paged dr isabel to inform of consult, no call returned
--- NOTE | 2019-07-14 23:50 | NUR ---
spoke with dr ewing, informed him of consult, reviewed pt with him, no new orders
[2019-07-15] VITALS (95 sets, daily range): BP systolic 70–148; BP diastolic 42–115
--- NOTE | 2019-07-15 | NUR ---
called dr lunsford, dipak to stop dobutamine due to b/p dropping, may start vasopressin if needed
[2019-07-15 00:13] LABS: APPEARANCE HAZY (CLEAR); BILIRUBIN NEGATIVE (NEGATIVE); COLOR YELLOW (YELLOW); GLUCOSE NEGATIVE (NEGATIVE); KETONE NEGATIVE (NEGATIVE); NITRITE NEGATIVE (NEGATIVE); PROTEIN TRACE mg/dL (NEGATIVE); SPECIFIC GRAVITY 1.015 (1.005-1.020); UROBILINOGEN NORMAL (NORMAL)
[2019-07-15 00:14] LABS: BACTERIA FEW /hpf (NEGATIVE); EPITHELIAL CELLS RARE /hpf (0-5)
--- NOTE | 2019-07-15 01:41 | NUR ---
PT AWAKE IN BED, CONT TO C/O HEADACHE, WEANING NIORIDE GTT, VITALS STABLE
--- NOTE | 2019-07-15 01:45 | NUR ---
PT AWAKE, ORIENTED, VITALS STABLE, WILL CONT TO MONITOR
--- NOTE | 2019-07-15 03:00 | NUR ---
PT RESTING QUIETLY, B/P REMAINS STABLE IN 90'S WITH LEVOPHED GTT @ 22 MCG/MIN, WILL CONT TO MONITOR
--- NOTE | 2019-07-15 05:15 | NUR ---
PT AROUSES EASILY WITH NO CHANGES, VITALS STABLE
[2019-07-15 07:26] LABS: ALBUMIN 2.7 g/dL (3.4-5.0); ANION GAP 15.6 mmol/L (8-16); BILIRUBIN - TOTAL 1.06 mg/dL (0.2-1.3); CALCIUM 8.5 mg/dL (8.5-10.1); CARBON DIOXIDE 26.6 mmol/L (21.0-32.0); CREATININE - SERUM 2.7 mg/dL (0.6-1.3); MAGNESIUM - SERUM 2.4 mg/dL (1.8-2.4); PHOSPHOROUS 5.5 mg/dL (2.5-4.9); POTASSIUM - SERUM 5.2 mmol/L (3.5-5.1); PROTEIN - SERUM 6.6 g/dL (6.4-8.2); VANCOMYCIN - RANDOM 5.8 ug/mL (10.0-20.0)
[2019-07-15 07:34] LABS: BASOPHILS 0.1 % (0-2); EOSINOPHILS 0.2 % (0-7); HEMATOCRIT 34.6 % (42.0-54.0); HEMOGLOBIN 11.1 g/dL (13.5-17.5); IMMATURE GRANULOCYTES 0.9 % (0-5); LYMPHOCYTES 6.5 % (15-50); MCH 29.6 pg (26.0-34.0); MCHC 32.1 g/dL (31.0-37.0); MCV 92.3 fL (80.0-100.0); MEAN PLATELET VOLUME 10.2 fL (7.4-10.4); MONOCYTES 13.3 % (2-11); RBC 3.75 10x6/uL (4.20-6.10); RDW 15.5 % (11.5-14.5)
[2019-07-15 07:35] LABS: PLATELET COUNT 476 10x3/uL (130-400)
--- NOTE | 2019-07-15 08:24 | NUR ---
0730 REPORT RECIEVED AND CARE ASSUMED OF PATIENT.. PT APPEARS TO BE HARD OF HEARING AND HARD TO ROUSE BUT IS APPROPRIATE IN REPONSES WHEN AWAKENED AND STIMULATED.. SEE FLOW SHEET FOR FINDINGS OF ASSESMENT, SCD AND SOCKS PLACED 0745 DR FUNEZ IN TO SEE PT FOR PRIMARY.. UPDATE GIVEN 08 NANETTE TAN RENAL IN TO SEE PT UPDATE IS GIVEN..
--- NOTE | 2019-07-15 10:38 | NUR ---
PER DR SMITH, CONSULT SURGERY FOR CVL PLACEMENT SINCE PT IS ON PRESSORS AND RECIEVING ANTIBIOTICS. PHYSICIAN PAGED AT THIS TIME.
--- NOTE | 2019-07-15 14:01 | NUR ---
0900 FAMILY IN TO SEE PT AND UPDATE GIVEN..
--- NOTE | 2019-07-15 14:02 | NUR ---
1230 SON AND DAUGHTER IN LAW AT BEDSIDE.. UPDATE GIVEN RE CVL PLACMENT.. PERMIT SIGNED BY SON AFTER DISCUSSING WITH PT.. 1245 DR OVALLES HERE AND SPEAKING WITH FAMILY .. TITRATING LEVO .. COMPLETE CHG BATH WITH GOWN AND LINEN CHANGE DONE.80% OF MID DAY DIET EATEN BY PATIENT 1400 PT CONTINUES TO C/O EAR PAIN.. DR OVALLES HERE AND INFORMED PT STATES THAT THROAT IS SORE TO SWALLOW ALSO.. MADE AWARE..
--- NOTE | 2019-07-15 14:58 | NUR ---
2007 DR DELVALLE IN UNIT CVL PLACEDRIGHT SUBCLAVIAN SITE. TOLERATED WELL. CXR ORDERED..
--- NOTE | 2019-07-15 15:07 | NUR ---
1500 NS IVF RATE INCREASED TO 100CC/HR PER ORDER
--- NOTE | 2019-07-15 17:19 | NUR ---
1600 REPOSITIONED 1700 FAMILY AT BEDSIDE ASSISTING PT WITH MEAL
--- NOTE | 2019-07-15 19:30 | NUR ---
PT A/OX4, VOICES NEEDS, LUNGS CLEAR, O2 @ 1L VIA N/C, RIGHT TLSC INTACT, IVF SWITCHED TO CVL FROM RIGHT PIV, NIXON PATENT TO BSD, VITALS STABLE, WILL CONT TO MONITOR
--- NOTE | 2019-07-15 21:15 | NUR ---
PT AWAKE WATCHING TV, TAKES PO MEDS WITHOUT DIFFICULTY, VITALS STABLE
--- NOTE | 2019-07-15 23:15 | NUR ---
PT RESTING QUIETLY, CONT TO WEAN LEVOPHED GTT, VITALS STABLE
[2019-07-16] VITALS (39 sets, daily range): BP systolic 84–146; BP diastolic 47–97
--- NOTE | 2019-07-16 01:00 | NUR ---
PT RESTING QUIETLY WITH EYES CLOSED, VITALS REMAIN STABLE, CONT TO WEAN LEVOPHED
--- NOTE | 2019-07-16 03:20 | NUR ---
PT C/O LEFT HIP PAIN AND RIGHT EAR PAIN, HOLDING RIGHT EAR, CALLED DR THAKKAR, ORDERS RECIEVED, WILL CONT TO MONITOR
--- NOTE | 2019-07-16 04:20 | NUR ---
PT CONT TO C/O RIGHT EAR PAIN RADIATING TO HIS JAW, D/C'D DOBUTAMINE GTT, PT FELL ASLEEP AFTER 15 MINUTES
[2019-07-16 05:12] LABS: BASOPHILS 0.2 % (0-2); EOSINOPHILS 0.4 % (0-7); HEMOGLOBIN 9.5 g/dL (13.5-17.5); IMMATURE GRANULOCYTES 0.8 % (0-5); LYMPHOCYTES 6.8 % (15-50); MCH 29.7 pg (26.0-34.0); MCHC 31.7 g/dL (31.0-37.0); MCV 93.8 fL (80.0-100.0); MONOCYTES 12.4 % (2-11); NEUTROPHILS 79.4 % (40-80); PLATELET COUNT 427 10x3/uL (130-400); RDW 15.6 % (11.5-14.5)
[2019-07-16 05:14] LABS: WBC 12.6 10x3/uL (4.8-10.8)
--- NOTE | 2019-07-16 05:20 | NUR ---
SPOKE WITH DR THAKKAR, INFORMED HIM DOBUTAMINE WAS D/C'D, PT STATES HIS EAR IS STARTING TO FEEL BETTER, VITALS STABLE
[2019-07-16 05:43] LABS: ALBUMIN 2.2 g/dL (3.4-5.0); ALKALINE PHOSPHATASE 150 U/L (46-116); BILIRUBIN - TOTAL 1.06 mg/dL (0.2-1.3); CALCIUM 8.7 mg/dL (8.5-10.1); CARBON DIOXIDE 29.1 mmol/L (21.0-32.0); CHLORIDE - SERUM 106 mmol/L (98-107); GLUCOSE 128 mg/dL (74-106); MAGNESIUM - SERUM 2.2 mg/dL (1.8-2.4); POTASSIUM - SERUM 4.6 mmol/L (3.5-5.1); PROTEIN - SERUM 6.5 g/dL (6.4-8.2); SODIUM 139 mmol/L (136-145); VANCOMYCIN - RANDOM 10.3 ug/mL (10.0-20.0)
[2019-07-16 05:45] LABS: ALT (SGPT) 28 U/L (10-68); CALC OSMOLALITY 295 mosm/kg (275-300); CKMB 2.5 U/L (0.0-3.6); CREATINE KINASE 717 UL (21-232); CREATININE - SERUM 1.9 mg/dL (0.6-1.3); UREA NITROGEN 57 mg/dL (7-18); eGFR NON AFRICAN AMERICAN 36 mL/min (90-120)
--- NOTE | 2019-07-16 15:09 | NUR ---
0700 REPORT RECIEVED AMD CARE ASSUMED OF PATIENT.. PT IS AWAKE AND APPROPRIATE IN RESPONSES.. WITHOUT C/O AT THIS TIME... 0730 FAMILY IN TO SEE PT.. 0800 FAMILY GONE FROM ROOM.. 0900 BREAKFAST SERVED AND MEDS GIVEN.. [address] DELGADILLO IN TO SEE PT.. SPOKE WITH FAMILY AT THE BEDSIDE.. 1100 DR OVALLES IN TO SEE PT ORDERS RECIEVED.. 1200 LUNCH SERVED FAMILY IN TO SEE PT.. DR GAMA IN TO SEE PT... 1300 SPT REFUSES TO BE BATHED OT TURNED OR REPOSITIONED AT THIS TIME STATING HE IS PAIN FREE AND DOESNT WANT TO MOVE AT THIS TIME...
--- NOTE | 2019-07-16 18:22 | NUR ---
1500 REPORITIONED AT THIS TIME STILL CONTINUES TO STATE HE IS NOT READY FOR A BATH.. 1630 I AND O DONE 1715 DINNER SERVED HOB ELEVATED AND PATIENT FEEDING SELF 1800 15 % DIET EATEN...
--- NOTE | 2019-07-16 19:29 | NUR ---
REPORT RECEIVED, SHIFT ASSESSMENT COMPLETE, PT IS ALERT AND ORIENTED, ON RA WITH 97% O2 SAT. ALL PPP, VSS, CALL LIGHT IN REACH
--- NOTE | 2019-07-16 21:00 | NUR ---
NO VISITORS AT THIS TIME, WILL CON'T TO MONITOR
--- NOTE | 2019-07-16 23:12 | NUR ---
REASSESSMENT COMPLETE, NO CHANGES NOTED, PT RESTING AT THIS TIME, VSS, CALL LIGHT IN REACH
[2019-07-17] VITALS (15 sets, daily range): BP systolic 99–139; BP diastolic 60–84; Ht 185.4 cm; Wt 119.3 kg
--- NOTE | 2019-07-17 01:15 | NUR ---
NO NEEDS NOTED AT THIS TIME, PT REPOSITIONED FOR COMFORT,
--- NOTE | 2019-07-17 03:04 | NUR ---
REASSESSMENT COMPLETE, NO CHANGES NOTED, PT RESTING AT THIS TIME, VSS, CALL LIGHT IN REACH
[2019-07-17 04:24] LABS: BASOPHILS 0.3 % (0-2); EOSINOPHILS 1.4 % (0-7); HEMATOCRIT 31.3 % (42.0-54.0); HEMOGLOBIN 9.7 g/dL (13.5-17.5); IMMATURE GRANULOCYTES 0.6 % (0-5); LYMPHOCYTES 13.3 % (15-50); MCH 29.4 pg (26.0-34.0); MCV 94.8 fL (80.0-100.0); MEAN PLATELET VOLUME 10.4 fL (7.4-10.4); MONOCYTES 11.8 % (2-11); NEUTROPHILS 72.6 % (40-80); PLATELET COUNT 410 10x3/uL (130-400); RDW 15.7 % (11.5-14.5); WBC 11.7 10x3/uL (4.8-10.8)
[2019-07-17 05:07] LABS: ALBUMIN 2.3 g/dL (3.4-5.0); ALKALINE PHOSPHATASE 143 U/L (46-116); ALT (SGPT) 24 U/L (10-68); BILIRUBIN - TOTAL 0.99 mg/dL (0.2-1.3); CARBON DIOXIDE 30.5 mmol/L (21.0-32.0); CHLORIDE - SERUM 107 mmol/L (98-107); GLUCOSE 111 mg/dL (74-106); POTASSIUM - SERUM 4.4 mmol/L (3.5-5.1); PROTEIN - SERUM 6.8 g/dL (6.4-8.2); SODIUM 141 mmol/L (136-145); VANCOMYCIN - RANDOM 12.9 ug/mL (10.0-20.0)
[2019-07-17 05:08] LABS: CALC OSMOLALITY 290 mosm/kg (275-300); CREATINE KINASE 370 UL (21-232); CREATININE - SERUM 1.4 mg/dL (0.6-1.3); PHOSPHOROUS 2.9 mg/dL (2.5-4.9); UREA NITROGEN 37 mg/dL (7-18); eGFR NON AFRICAN AMERICAN 51 mL/min (90-120)
--- NOTE | 2019-07-17 05:30 | NUR ---
NO NEEDS NOTED AT THIS TIME, WILL CON'T TO MONITOR
--- NOTE | 2019-07-17 07:00 | NUR ---
PT REPORT RECEIVED FROM WATER PUMPING STATION ENGINEER NURSE. NO ACUTE SIGNS OF DISTRESS NOTED. SHIFT ASSESSMENT COMPLETED. WILL CONTINUE TO MONITOR
--- NOTE | 2019-07-17 09:00 | NUR ---
DR PARTIDA AT BEDSIDE. UPDATE GIVEN. NO NEW ORDERS AT THIS TIME. WILL CONTINUE TO MONITOR
--- NOTE | 2019-07-17 11:00 | NUR ---
DR OVALLES IN UNIT. SIGNED OFF ON PT. REASSESSMENT COMPLETED. NO ACUTE SIGNS OF DISTRESS NOTED. WILL CONTINUE TO MONITOR
--- NOTE | 2019-07-17 12:00 | NUR ---
TRANSFER ORDER RECEIVED. CALLED [employer] FOR A BED
--- NOTE | 2019-07-17 12:18 | CN ---
PATIENT NAME:TICO MCLAUGHLIN MEDICAL RECORD: [id number] : 39 LOCATION:[id number] ADMIT DATE: 07/14/19 ACCOUNT: [id number] CONSULTING PHYSICIAN: NIDHI CAIN MD REFERRING PHYSICIAN: NIDHI THAKKAR MD DATE OF CONSULTATION: 07/16/2019 HISTORY OF PRESENT ILLNESS: An 84-year-old gentleman with a history of atrial fibrillation, chronic, on DOAC for cerebrovascular accident prophylaxis, history of a recent hip fracture, was at outside rehab facility, transferred here with sepsis, hypotension, worsening acute renal insufficiency, presumed acute tubular necrosis from sepsis and hypotension, currently renal function is improving. Rates were elevated, although controlled at this point. We are asked to see him concerning his cardiovascular status. CK-MB was elevated as well, but this was in the face of a normal troponin. BNP elevated 1579. PAST MEDICAL HISTORY: 1. History of atrial fibrillation. 2. Cerebrovascular disease with TIA in the past. 3. Renal insufficiency. 4. Dyslipidemia. MEDICATIONS: Upon transfer included Neurontin 300 mg t.i.d., potassium 20 every day, HCTZ 25 every day, Bumex 2 mg p.o. daily, [place] 10/325 q.4 p.r.n., Aldactone 25 every day, simvastatin 20 every day, enalapril 20 every day, atenolol 25 every day, and Eliquis 2.5 every day. SOCIAL HISTORY: Previously was at home, independent after total knee replacement. Currently in rehabilitation. Nonsmoker and nondrinker. REVIEW OF SYSTEMS: The patient reports easy bruising but reports no swollen glands. The patient reports no fever, no night sweats, no significant weight gain, no significant weight loss. No significant exercise tolerance. The patient reports no dry eyes, no irritation, no vision change. Patient reports no difficulty hearing and no ear pain. Patient reports no frequent nose bleeds or nose and sinus problems. Patient reports on arm pain on exertion. No shortness of breath while lying down. No history of heart murmur. Patient reports no cough, no wheezing or coughing up blood. Patient reports no abdominal pain, no vomiting. Normal appetite. No diarrhea and not vomiting blood. No nausea and no constipation. Patient reports no incontinence. No difficulty urinating. No hematuria. No increased frequency. Patient reports no muscle aches. No weakness, no arthralgias, no back pain. No swelling of the extremities. Patient reports no abnormal mole, no jaundice, no rashes. Reports no loss of consciousness. No weakness and no numbness. No seizures, dizziness, or headaches. The patient reports no depression, no sleep disturbance, feeling safe in a relationship and no alcohol abuse. Patient reports on fatigue. Reports no runny nose or sinus pressure. No itching, no hives, and no frequent sneezing. PHYSICAL EXAMINATION: GENERAL: Pleasant gentleman in no acute distress, comfortable at this point. VITAL SIGNS: Blood pressure 100/81, pulse 81 and regular. HEENT: Normocephalic, atraumatic. NECK: No bruits are noted. HEART: Irregular, rate is controlled. A II/ systolic ejection murmur. CONSULT REPORT [id number] TICO MCLAUGHLIN LUNGS: Actually fairly good air excursion. ABDOMEN: Soft, nontender. EXTREMITIES: Pulses are still preserved at 1+. There is no edema. IMPRESSION: Atrial fibrillation, rate is better after hydration and improvement in renal function and other septic parameters. We will check echocardiographic study, assess LV function. For rates elevated again could consider something such as digoxin for the short term. TRANSINT:[id number] Voice Confirmation ID: [id number] DOCUMENT ID: [id number] NIDHI CAIN MD at 1218 CC: [id number] DICTATION DATE: 07/16/19 1105 SOIL SCIENCE PROFESSOR: 07/16/19 1645 ADM IN [place] [id number] [place] [address]
--- NOTE | 2019-07-17 12:18 | EC ---
PATIENT:TICO MCLAUGHLIN DATE OF SERVICE: 07/14/19 SEX: M MEDICAL RECORD: [id number] DATE OF : 39 LOCATION:[facility] D230 AGE OF PATIENT: 84 ADMISSION DATE: 07/14/19 REFERRING PHYSICIAN: INTERPRETING PHYSICIAN: NIDHI CAIN MD ECHOCARDIOGRAM REPORT ECHO CHARGES 4 ECHO COMPLETE Date: 07/15/19 CLINICAL DIAGNOSIS: AFIB, HYPOTENSION, EDEMA ECHOCARDIOGRAPHIC MEASUREMENTS (adult normal given) AC root (d.<3.7cm) 2.7 cm LV Septum d (<1.2 cm> 0.9 cm Valve Excursion 1.6 cm LV Septum (systole) 1.5 cm Left Atria (s.<4.0cm> 3.7 cm LVPW d(<1.2cm) 0.9 cm RV (d.<2.3cm) 2.7 cm LVPW (sytole) 1.1 cm LV diastole(<5.6CM) 4.2 cm MV E-F(>70mm/sec) cm LV systole 2.6 cm LVOT Diameter 1.5 cm MV exc.(>10mm) cm Est.ejection fraction (50-75%) % DOPPLER: LVIT cm/sec A 59 cm/sec E 60 cm/sec LA cm/sec RVSP 17.2 mmHg LVOT 98 cm/sec AOP1/2T m/s Asc. Ao 153 cm/sec RVOT 90 cm/sec RA cm/sec PA 147 cm/sec AV Gradient Peak 9.3 mmHg AV Mean 4.4 mmHg AV Area 1.5 cm MV Gradient Peak 3.5 mmHg MV Mean 1.7 mmHg MV Area cm COMMENTS: Senior Commissions Analyst: Ivan VALDES Head Up Operator Helper: 3 Dr. Arnold TAPE# PACS Pericardial Effusion N DATE OF SERVICE: Adequate 2D echo, color flow, spectral Doppler, and M-mode. No LVH. LV internal motion is normal. Wall motion is normal. EF 35%. Aortic valve is tricuspid. No evidence of stenosis by Doppler interrogation. Left atrium is normal at 3.7 cm. Mitral valve shows no prolapse. Trace MR. Right-sided chambers are still grossly normal. Trace TR. TRANSINT:[id number] Voice Confirmation ID: [id number] DOCUMENT ID: [id number] ECHOCARDIOGRAM REPORT [id number] LISSETTETICO NIDHI CAIN MD at 1218 CC: [id number] DICTATION DATE: 07/16/19 1136 FOOD MIXER ASSEMBLER: 07/17/19 0610 ADM IN [place] [id number] [place] [id number]
--- NOTE | 2019-07-17 12:45 | NUR ---
BED ASSIGNMENT RECEIVED. GOING TO ROOM 4996.
--- NOTE | 2019-07-17 13:30 | NUR ---
PT REPORT CALLED TO [facility] ON MED 2. PREPARING TO TRANSFER PT OVER.
--- NOTE | 2019-07-17 14:52 | NUR ---
RECIVED FROM ICU PER BED. TO ROOM 2128.
--- NOTE | 2019-07-17 18:10 | NUR ---
WITHOUT CHANGES OR DISTRESS NOTED AT THIS TIME. DENIES NEEDS
--- NOTE | 2019-07-17 19:00 | NUR ---
EVENING ROUNDS COMPLETE, PT LAYING IN BED, NO SIGNS OF DISTRESS. AAOX4. PT DENIES ANY PAIN OR NEEDS AT THIS TIME. CL IN REACH, BED IN LOWEST POSITION.
[2019-07-18 00:30] VITALS: BP 132/68
[2019-07-18 04:16] LABS: BASOPHILS 0.2 % (0-2); HEMATOCRIT 31.4 % (42.0-54.0); HEMOGLOBIN 9.8 g/dL (13.5-17.5); IMMATURE GRANULOCYTES 0.8 % (0-5); LYMPHOCYTES 13.1 % (15-50); MCH 29.5 pg (26.0-34.0); MCHC 31.2 g/dL (31.0-37.0); MCV 94.6 fL (80.0-100.0); MEAN PLATELET VOLUME 9.7 fL (7.4-10.4); MONOCYTES 10.8 % (2-11); NEUTROPHILS 74.1 % (40-80); PLATELET COUNT 333 10x3/uL (130-400); RBC 3.32 10x6/uL (4.20-6.10); RDW 15.2 % (11.5-14.5); WBC 11.1 10x3/uL (4.8-10.8)
[2019-07-18 04:30] VITALS: BP 117/57
[2019-07-18 04:39] LABS: ALBUMIN 2.3 g/dL (3.4-5.0); ANION GAP 9.7 mmol/L (8-16); BILIRUBIN - TOTAL 1.04 mg/dL (0.2-1.3); CALCIUM 9.2 mg/dL (8.5-10.1); CARBON DIOXIDE 29.5 mmol/L (21.0-32.0); CREATININE - SERUM 1.3 mg/dL (0.6-1.3); MAGNESIUM - SERUM 1.8 mg/dL (1.8-2.4); PHOSPHOROUS 2.7 mg/dL (2.5-4.9); POTASSIUM - SERUM 4.2 mmol/L (3.5-5.1); PROTEIN - SERUM 6.8 g/dL (6.4-8.2); VANCOMYCIN - RANDOM 11.9 ug/mL (10.0-20.0)
[2019-07-18 09:58] VITALS: BP 151/78
--- NOTE | 2019-07-18 11:00 | NUR ---
PT ASSISTED ON BSC AND BACK IN BED BY POWER TONG OPERATOR. PT HAD A LARGE BM.
[2019-07-18 11:06] LABS: CREATININE - URINE 76.9 mg/dL (30-125); PRO/CRE RATIO URINE 2.9 mg/g; PROTEIN - URINE 223.1 mg/dL (0.0-11.9)
--- NOTE | 2019-07-18 13:41 | NUR ---
SPOKE WITH JESSE Graham AND NOTIFIED HIM OF CONSULT. HE VERBALIZED UNDERSTANDING.
--- NOTE | 2019-07-18 14:05 | OP ---
PATIENT NAME: TICO MCLAUGHLIN MEDICAL RECORD: [id number] :37 LOCATION:D.M2 D.2128 ADMISSION DATE:07/14/19 SURGEON: LESLI DELVALLE MD DATE OF OPERATION: 07/15/2019 PREOPERATIVE DIAGNOSES: 1. Need for IV access. 2. Sepsis. 3. Osteoarthritis. 4. Hypotension. 5. Ijaor-rd-emuziew renal failure. POSTOPERATIVE DIAGNOSES: 1. Need for IV access. 2. Sepsis. 3. Osteoarthritis. 4. Hypotension. 5. Nebtn-ci-evyzzdd renal failure. PROCEDURE: Right subclavian vein triple-lumen central venous line placement. SURGEON: Lesli Delvalle MD REPORT OF PROCEDURE: The patient's right chest was prepped and draped in sterile fashion. A 5 mL of 1% lidocaine with epinephrine was infused into the surrounding tissues. A needle was used to cannulate the right subclavian vein and a guidewire was advanced with ease. Over this wire, a dilator was placed followed by the triple lumen catheter. The catheter aspirated nonpulsatile dark blood and flushed easily in all 3 ports. This was sutured into place with 3-0 Prolenes and dressed appropriately. COMPLICATIONS: None. CONDITION: Stable. ANESTHESIA: Local. BLOOD LOSS: Minimal. Procedure done in the ICU at the bedside. TRANSINT:[id number] Voice Confirmation ID: [id number] DOCUMENT ID: [id number] LESLI DELVALLE MD at 1405 CC: [id number] DICTATION DATE: 07/15/19 1457 CARGO CHECKER: 07/15/19 1759 ADM IN [place] [address] [place] [id number]
[2019-07-18 14:40] VITALS: BP 117/65
--- NOTE | 2019-07-18 14:51 | NUR ---
I have reviewed this patient and I concur with the Shift Assessment completed by the Licensed Practical Nurse today this shift.
--- NOTE | 2019-07-18 16:43 | NUR ---
PT STATES HE ALREADY HAS HAD A BM TODAY AND DOES NOT WANT MAG CITRATE. I VERBALIZED UNDERSTANDING.
[2019-07-18 17:32] VITALS: BP 127/83
[2019-07-18 20:45] VITALS: BP 129/66
[2019-07-19 01:05] VITALS: BP 120/67
[2019-07-19 04:45] VITALS: BP 133/61
[2019-07-19 05:17] LABS: BASOPHILS 0.3 % (0-2); EOSINOPHILS 2.6 % (0-7); HEMATOCRIT 30.6 % (42.0-54.0); HEMOGLOBIN 9.6 g/dL (13.5-17.5); IMMATURE GRANULOCYTES 0.5 % (0-5); LYMPHOCYTES 16.3 % (15-50); MCH 29.6 pg (26.0-34.0); MCHC 31.4 g/dL (31.0-37.0); MCV 94.4 fL (80.0-100.0); MEAN PLATELET VOLUME 10.2 fL (7.4-10.4); MONOCYTES 11.8 % (2-11); NEUTROPHILS 68.5 % (40-80); PLATELET COUNT 318 10x3/uL (130-400); RBC 3.24 10x6/uL (4.20-6.10); RDW 15.2 % (11.5-14.5); WBC 9.5 10x3/uL (4.8-10.8)
[2019-07-19 06:09] LABS: ALBUMIN 2.1 g/dL (3.4-5.0); ANION GAP 11.9 mmol/L (8-16); BILIRUBIN - TOTAL 0.87 mg/dL (0.2-1.3); CREATININE - SERUM 1.2 mg/dL (0.6-1.3); MAGNESIUM - SERUM 1.9 mg/dL (1.8-2.4); PHOSPHOROUS 2.7 mg/dL (2.5-4.9); POTASSIUM - SERUM 3.9 mmol/L (3.5-5.1); PROTEIN - SERUM 6.3 g/dL (6.4-8.2)
--- NOTE | 2019-07-19 07:37 | NUR ---
ASSESSMENT DONE DENIES NEEDS
--- NOTE | 2019-07-19 09:26 | NUR ---
I have reviewed this patient and I concur with the Shift Assessment completed by the Licensed Practical Nurse today this shift.
[2019-07-19 10:21] VITALS: BP 132/56
[2019-07-19] MEDS ORDERED: PROSCAR5 MG PO (13:22)
[2019-07-19 14:52] VITALS: BP 133/74
--- NOTE | 2019-07-19 17:30 | MORECARE ---
CASE MANAGEMENT DISCHARGE SUMMARY PATIENT: TICO MCLAUGHLIN UNIT: [id number] ADM DATE: 07/14/19 AGE: 84 : 37 SEX: M ROOM/BED: D.0070 AUTHOR: KEVAN VILLAVICENCIO PHYSICIAN: REFERRING PHYSICIAN: NIDHI THAKKAR MD DATE OF SERVICE: 07/19/19 Discharge Plan Patient Name: TICO MCLAUGHLIN [facility] [facility] 1935 Planned Disposition: Custodial Facility Anticipated Discharge Date: 07/19/19 Discharge Date: Expected LOS: 5 Initial Reviewer: [email or web address] Initial Review Date: 07/14/2019 Generated: 07/19/19 6:29 pm External Providers External Provider: OTHER-OTHER Next Contact Date: 07/19/2019 Service Request Date: Service Type: Resolution: Reviewer: Comments: Patient Name: TICO MCLAUGHLIN Page [phone] at 1730 All edits/amendments must be made on the electronic document DICTATION DATE: 07/19/191728 CULVERT INSTALLER: DM 07/19/191728 RPT#: [id number] NV DATE: STATUS: ADM IN [facility] [address] [place] [address] END OF REPORT
--- NOTE | 2019-07-19 17:37 | MORECARE ---
CASE MANAGEMENT DISCHARGE SUMMARY PATIENT: TICO MCLAUGHLIN UNIT: [id number] ADM DATE: 07/14/19 AGE: 84 : 37 SEX: M ROOM/BED: D.4496 AUTHOR: MAYE,DOC PHYSICIAN: REFERRING PHYSICIAN: NIDHI THAKKAR MD DATE OF SERVICE: 07/19/19 Discharge Plan Patient Name: TICO MCLAUGHLIN Facility: [facility]:[place] : 1935 Planned Disposition: Care Home Facility Anticipated Discharge Date: 07/19/19 Discharge Date: Expected LOS: 5 Initial Reviewer: [email or web address] Initial Review Date: 07/14/2019 Generated: 07/19/19 6:37 pm Comments DCP- Discharge Planning Updated by [email or web address]: Meet Del Castillo on 07/19/19 4:[address] Patient Name: TICO MCLAUGHLIN Admission Status: ER Accout number: [id number] Admission Date: 07-14-2019 : 1935 Admission Diagnosis: Attending: KLAUDIA Current LOS: 5 Anticipated DC Date: 07-19-2019 Planned Disposition: Care Home Facility Primary Insurance: MEDICARE A & B PLANNED EXTERNAL PROVIDER: [facility], MEDICARE REHAB BED Discharge Planning Comments: CMRECEIVED DISCHARGE ORDER, MET WITH PT IN ROOM TO DISCUSS DISCHARGE PLANNING AND NEEDS. PT REPORTS HE IS IN REHAB AT [facility] IN [place] AND WILL RETURN THERE AT DISCHARGE. PT HAS BESIDE COMMODE, ROLLING WALKER AND WHEELCHAIR AT HOME AND NORMALLY LIVES ALONE. PT WANTS TO RETURN TO REHAB AND SIGNED CONSENT FOR [facility]. IMPORTANT MESSAGE FROM MEDICARE PROVIDED AND EXPLAINED. JENNIFER NOTIFIED [place] OF [facility], , AND FAXED REFERRAL AND DISCHARGE INFORMATION TO [facility] AT [phone], WHO FORWARDED FAXED INFORMATION TO [facility]. [facility] TO ARRANGE VAN INSURANCE REPRESENTATIVE. REPORT TO BE CALLED TO [facility] AT [phone], CHILD AND ADOLESCENT PSYCHIATRIST NURSE NOTIFIED. JENNIFER LATER NOTIFIED BY BEDSIDE NURSE THAT [facility] WOULD NOT ACCEPT REPORT TODAY AND WILL INSURANCE REPRESENTATIVE PT TOMORROW BETWEEEN 10AM AND 1100AM. JENNIFER SPOKE TO [place] WHO REPORTS THE DISCHARGE INFORMATION WAS GIVEN TO THEM LATE AFTERNOON AND THEY NEEDED TIME TO REVIEW AND DID NOT HAVE VAN AVAILABLE THIS LATE IN DAY AND WILL ACCEPT TOMORROW. ON 07-20-19, REPORT TO BE CALLED TO [facility] AT [phone], THEY WILL SEND VAN FOR INSURANCE REPRESENTATIVE BETWEEN 10 AND 11 AM. Top Collar Maker: Meet Del Castillo DCPIA - Discharge Planning Initial Assessment Updated by [id number]: Meet Del Castillo on 07/19/19 5:30 pm * Is the patient Alert and Oriented? Yes * How many steps to enter\exit or inside your home? NONE * PCP [facility]RA IN [facility] * Pharm[facility] IN [place] * Preadmission Environment Care Home Facility * Facility Name [facility] * ADLs Partial Dependent * Partial ADLs (Assistance needed) Ambulation Bathing Dressing Medication Management Transfers * Equipment Other * Other Equipment ALL MEDICAL EQUIPMENT PROVIDED BY FACILITY * List name and contact numbers for known caregivers / representatives who currently or will assist patient after discharge: MARNIE MCLAUGHLIN, DTR IN LAW, RODNEY LUNA, DTR, * Verbal permission to speak to the caregivers and representatives has been obtained from the patient. N/A * Community resources currently utilized None * Please name any agencies selected above. NONE * Additional services required to return to the preadmission environment? No * Can the patient safely return to the preadmission environment? Yes * Has this patient been hospitalized within the prior 30 days at any hospital? Yes Coverage Notice Reviewer: [email or web address] Stanislaw Del Castillo Notice Issued Date-Time: 07/19/2019 14:20 Notice Type: Patient Choice Letter Notice Delivered To: Patient Relationship to Patient: Head Teller Name: Delivery Method: HAND - Hand Delivered Yarelis Days: Prior Verbal Notification: Recipient Understood Notice: Yes Recipient Signature: Yes Med Rec Note Co-signed by Attending: Coverage Notice Comment: [facility] Reviewer: [email or web address] Stanislaw Del Castillo Notice Issued Date-Time: 07/19/2019 14:20 Notice Type: IM Discharge Notice Notice Delivered To: Patient Relationship to Patient: Head Teller Name: Delivery Method: HAND - Hand Delivered Yarelis Days: Prior Verbal Notification: Recipient Understood Notice: Yes Recipient Signature: Yes Med Rec Note Co-signed by Attending: Coverage Notice Comment: Last DP export: 07/19/19 4:30 p Patient Name: TICO MCLAUGHLIN Page [phone] at 1737 All edits/amendments must be made on the electronic document DICTATION DATE: 07/19/191736 ROUGHER HELPER: CORINE 07/19/191736 RPT#: [id number] DC DATE: STATUS: ADM IN [facility] [address] [place] [address] END OF REPORT
[2019-07-19 18:22] VITALS: BP 138/69
--- NOTE | 2019-07-19 19:06 | NUR ---
EVENING ROUNDS COMPLETE. PT LAYING IN BED, NO SIGNS OF DISTRESS. PT ALMA ROSA ANY PAIN OR NEEDS AT THIS TIME. AAOX4 AT THIS TIME. CL IN REACH, BED IN LOWEST POSITION.
[2019-07-19 23:46] VITALS: BP 136/74
[2019-07-20 00:18] VITALS: BP 144/79
[2019-07-20 04:00] VITALS: BP 136/89
[2019-07-20 06:44] LABS: BASOPHILS 0.2 % (0-2); EOSINOPHILS 3.1 % (0-7); HEMATOCRIT 30.8 % (42.0-54.0); HEMOGLOBIN 9.6 g/dL (13.5-17.5); IMMATURE GRANULOCYTES 0.6 % (0-5); LYMPHOCYTES 15.2 % (15-50); MCH 29.6 pg (26.0-34.0); MCHC 31.2 g/dL (31.0-37.0); MCV 95.1 fL (80.0-100.0); MEAN PLATELET VOLUME 9.8 fL (7.4-10.4); MONOCYTES 10.6 % (2-11); NEUTROPHILS 70.3 % (40-80); PLATELET COUNT 299 10x3/uL (130-400); RBC 3.24 10x6/uL (4.20-6.10); RDW 15.2 % (11.5-14.5)
[2019-07-20 07:09] LABS: ALBUMIN 2.3 g/dL (3.4-5.0); ANION GAP 10.6 mmol/L (8-16); BILIRUBIN - TOTAL 0.77 mg/dL (0.2-1.3); CALCIUM 9.2 mg/dL (8.5-10.1); CREATININE - SERUM 1.2 mg/dL (0.6-1.3); MAGNESIUM - SERUM 1.9 mg/dL (1.8-2.4); PHOSPHOROUS 2.8 mg/dL (2.5-4.9); POTASSIUM - SERUM 3.6 mmol/L (3.5-5.1); PROTEIN - SERUM 6.4 g/dL (6.4-8.2)
--- NOTE | 2019-07-20 08:40 | MORECARE ---
CASE MANAGEMENT DISCHARGE SUMMARY PATIENT: TICO MCLAUGHLIN UNIT: [id number] ADM DATE: 07/14/19 AGE: 84 : 37 SEX: M ROOM/BED: D.9337 AUTHOR: MAYE,DOC PHYSICIAN: REFERRING PHYSICIAN: NIDHI THAKKAR MD DATE OF SERVICE: 07/20/19 Discharge Plan Patient Name: TICO MCLAUGHLIN Facility: [facility]:[place] : 1935 Planned Disposition: Chcf Facility Anticipated Discharge Date: 07/20/19 Discharge Date: Expected LOS: 6 Initial Reviewer: [email or web address] Initial Review Date: 07/14/2019 Generated: 07/20/19 9:40 am Comments DCP- Discharge Planning Updated by [email or web address]: Meet Del Castillo on 07/19/19 4:[address] Patient Name: TICO MCLAUGHLIN Admission Status: ER Accout number: [id number] Admission Date: 07-14-2019 : 1935 Admission Diagnosis: Attending: KLAUDIA Current LOS: 5 Anticipated DC Date: 07-19-2019 Planned Disposition: Chcf Facility Primary Insurance: MEDICARE A & B PLANNED EXTERNAL PROVIDER: [facility], MEDICARE REHAB BED Discharge Planning Comments: CMRECEIVED DISCHARGE ORDER, MET WITH PT IN ROOM TO DISCUSS DISCHARGE PLANNING AND NEEDS. PT REPORTS HE IS IN REHAB AT [facility] IN [place] AND WILL RETURN THERE AT DISCHARGE. PT HAS BESIDE COMMODE, ROLLING WALKER AND WHEELCHAIR AT HOME AND NORMALLY LIVES ALONE. PT WANTS TO RETURN TO REHAB AND SIGNED CONSENT FOR [facility]. IMPORTANT MESSAGE FROM MEDICARE PROVIDED AND EXPLAINED. JENNIFER NOTIFIED [place] OF [facility], , AND FAXED REFERRAL AND DISCHARGE INFORMATION TO [facility] AT [phone], WHO FORWARDED FAXED INFORMATION TO [facility]. [facility] TO ARRANGE VAN DENTAL PATIENT COORDINATOR. REPORT TO BE CALLED TO [facility] AT [phone], RAILWAYS ASSISTANT NURSE NOTIFIED. JENNIFER LATER NOTIFIED BY BEDSIDE NURSE THAT [facility] WOULD NOT ACCEPT REPORT TODAY AND WILL DENTAL PATIENT COORDINATOR PT TOMORROW BETWEEEN 10AM AND 1100AM. JENNIFER SPOKE TO [place] WHO REPORTS THE DISCHARGE INFORMATION WAS GIVEN TO THEM LATE AFTERNOON AND THEY NEEDED TIME TO REVIEW AND DID NOT HAVE VAN AVAILABLE THIS LATE IN DAY AND WILL ACCEPT TOMORROW. ON 07-20-19, REPORT TO BE CALLED TO [facility] AT [phone], THEY WILL SEND VAN FOR DENTAL PATIENT COORDINATOR BETWEEN 10 AND 11 AM. Police Reserves Commander: Meet Del Castillo DCPIA - Discharge Planning Initial Assessment Updated by [id number]: Meet Del Castillo on 07/19/19 5:30 pm * Is the patient Alert and Oriented? Yes * How many steps to enter\exit or inside your home? NONE * PCP DR BOCANEGRA IN [facility] * Pharmacy [facility] IN [place] * Preadmission Environment [facility]cf Facility * Facility Name [facility] * ADLs Partial Dependent * Partial ADLs (Assistance needed) Ambulation Bathing Dressing Medication Management Transfers * Equipment Other * Other Equipment ALL MEDICAL EQUIPMENT PROVIDED BY FACILITY * List name and contact numbers for known caregivers / representatives who currently or will assist patient after discharge: MARNIE MCLAUGHLIN, DTR IN LAW, RODNEY LUNA, DTR, * Verbal permission to speak to the caregivers and representatives has been obtained from the patient. N/A * Community resources currently utilized None * Please name any agencies selected above. NONE * Additional services required to return to the preadmission environment? No * Can the patient safely return to the preadmission environment? Yes * Has this patient been hospitalized within the prior 30 days at any hospital? Yes Coverage Notice Reviewer: [email or web address] Stanislaw Del Castillo Notice Issued Date-Time: 07/19/2019 14:20 Notice Type: Patient Choice Letter Notice Delivered To: Patient Relationship to Patient: Cash Register Repairer Name: Delivery Method: HAND - Hand Delivered Yarelis Days: Prior Verbal Notification: Recipient Understood Notice: Yes Recipient Signature: Yes Med Rec Note Co-signed by Attending: Coverage Notice Comment: [facility] Reviewer: [id number] Stanislaw Del Castillo Notice Issued Date-Time: 07/19/2019 14:20 Notice Type: IM Discharge Notice Notice Delivered To: Patient Relationship to Patient: Cash Register Repairer Name: Delivery Method: HAND - Hand Delivered Yarelis Days: Prior Verbal Notification: Recipient Understood Notice: Yes Recipient Signature: Yes Med Rec Note Co-signed by Attending: Coverage Notice Comment: Last DP export: 07/19/19 4:37 p Patient Name: TICO MCLAUGHLIN Page [phone] at 0840 All edits/amendments must be made on the electronic document DICTATION DATE: 07/20/19839 DEVIL DOG: CORINE 07/20/19839 RPT#: [id number] DC DATE: STATUS: ADM IN [facility] [address] [place] [address] END OF REPORT
[2019-07-20 09:18] VITALS: BP 155/85
--- NOTE | 2019-07-20 11:56 | NUR ---
DISCHARGED STARLA TO [facility] BY THEIR BETHEL. SUBCLAVIAN DCD
== END 2019-07-20 11:58 | DRG 871 ==
LOC: D.ER 18:03 → D.ICU 18:32 → D.M2 18:32
PROVIDERS: Family Medicine; Internal Medicine Nephrology; ADMIT Family Medicine; ATTEND Family Medicine
PROC: 05H Upper Veins, Insertion (ICD-10-PCS; principal; 2019-07-15)
DX: A41.9 Sepsis, unspecified organism (principal); J18.9 Pneumonia, unspecified organism; R65.21 Severe sepsis with septic shock; N17.0 Acute kidney failure with tubular necrosis; J96.01 Acute respiratory failure with hypoxia; E87.1 Hypo-osmolality and hyponatremia; Y95 Nosocomial condition; E87.5 Hyperkalemia; E83.42 Hypomagnesemia; I48.91 Unspecified atrial fibrillation; I12.9 Hypertensive chronic kidney disease with stage 1 through stage 4 chronic kidney disease, or unspecified chronic kidney disease; N18.9 Chronic kidney disease, unspecified; Z79.01 Long term (current) use of anticoagulants; H65.91 Unspecified nonsuppurative otitis media, right ear; N40.1 Benign prostatic hyperplasia with lower urinary tract symptoms; R33.8 Other retention of urine; Z86.73 Personal history of transient ischemic attack (TIA), and cerebral infarction without residual deficits